=== PATIENT | female | born 1960 | race Caucasian/White ===

== ENCOUNTER 2021-07-05 14:57 | Emergency (ER) | payer OTHER ==
--- OUTSIDE RECORDS SUMMARY | 2021-07-05 15:00 | XMS REPORT | Continuity of Care Document ---
:1960 Author Organization [facility] t Address [address] [place] [address] Care Team Providers Name Role Phone Morro DOWLING Primary Care Physician Morro DOWLING Attending Clinician Doctor Unassigned, Name Attending Clinician Unavailable MORRO Attending Clinician Unavailable Romario DOWLING Attending Clinician Payers Payer Name Policy Type Policy Number Effective Date Expiration Date S ource Problems Condition Condition Condition Status Onset Resolution Last Treating Co mments Source Name Details Category Date Date Treatment Clinician Date Prediabete Prediabete Disease Active 2020-03 U nivers s s 0-22 ity of :: [address] [place] [address] Dysuria Dysuria Disease Active Univers 6-11 ity of :: Medical [place] History of History of Disease Active U nivers UTI UTI 09-05 ity of :: [place] [facility] CKD CKD Disease Active Univers (chronic (chronic 6- ity of kidney kidney 00:00: [place] disease) disease) 00 Medica l stage 2, stage 2, Branch GFR 60-89 GFR 60-89 ml/min ml/min Urinary Urinary Disease Active Univers frequency frequency - ity of :: Medical Branch Recurrent Recurrent Disease Active Uni vers UTI UTI - ity of 00:: Medical Branch Decreased Decreased Disease Active Uni vers GFR GFR - ity of 00:: [place] 00 Medical Branch Gastroesop Gastroesop Disease Active U nivers hageal hageal 3-29 ity of reflux reflux 00:00: [place] disease disease 00 Medical without without Branch esophagiti esophagiti s s Sleep Sleep Disease Active 2018-03 Univers apnea, apnea, 2-15 ity of unspecifie unspecifie [place] d type d type 00 Medical Branch Irritable Irritable Disease Active 2018-03 Uni vers bowel bowel 0-26 ity of syndrome syndrome 00:00: [place] with with 00 Medical diarrhea diarrhea Branch Annual Annual Disease Active 2018-03 Univers physical physical 0-23 ity of exam exam 00:00: [place] 00 Medical Branch Need for Need for Disease Active 2018-03 Unive rs prophylact prophylact 0-23 it y of ic ic 00:00: [place] vaccinatio vaccinatio 00 Me dical n against n against Bran ch Streptococ Streptococ cus cus pneumoniae pneumoniae (pneumococ (pneumococ cus) cus) Need for Need for Disease Active 2018-03 Unive rs hepatitis hepatitis 0-23 ity of C C 00:00: [place] screening screening 00 Medi vikki test test Branch Essential Essential Disease Active 2018-03 Uni vers hypertensi hypertensi 0-23 it y of on on 00:00: [place] 00 Medical Branch Morbid Morbid Disease Active Univers obesity obesity 4-21 ity of with body with body 00:00: [facility] s mass index mass index 00 Me dical (BMI) of (BMI) of Branch 40.0 or 40.0 or higher higher SVT SVT Disease Active Univers (supravent (supravent 4-21 it y of ricular ricular 00:00: [place] tachycardi tachycardi 00 Me dical a) a) Branch Diverticul Diverticul Disease Active U nivers itis itis 4-21 ity of 00:00: [place] 00 Medical Branch Diverticul Diverticul Disease Active U nivers osis osis 4-21 ity of 00:00: [place] 00 Medical Branch Neuralgia Neuralgia Disease Active Uni vers 4-21 ity of 00:00: [place] 00 Medical Branch H/O H/O Disease Active 2012-03 Univers thyroid thyroid 0-04 ity of disease disease 00:00: [place] 00 Medical Branch B12 B12 Disease Active 2012-03 Univers deficiency deficiency 0-04 it y of 00:00: [place] 00 Medical Branch Vitamin D Vitamin D Disease Active 2012-03 Uni vers deficiency deficiency 0-04 it y of 00:00: [place] 00 Medical Branch Allergies, Adverse Reactions, Alerts Allergy Allergy Status Severity Reaction(s) Onset Inactive Treating Comm ents Source Name Type Date Date Clinician CODEINE DRUG Active N/V Univers INGREDI 4-21 ity of 00:00: [place] 00 Medical Branch Codeine Propensi Active Nausea Univers ty to and/or 4-21 ity of adverse Vomiting 00:00: [place] reaction 00 Medical s Branch Social History Social Habit Start Date Stop Date Quantity Comments Source Exposure to Not sure [facility] SARS-CoV-2 [place] [facility] (event) Branch History SDOH University o f Alcohol Frequency [facility] edical Branch History SDOH University o f Alcohol Std [place] [facility] Drinks Branch History SDOH University o f Alcohol Binge [place] [facility] al [place] Alcohol intake 2021-03-27 2021-03-27 0 /d University of 00:00:00 00:00:00 [facility] Alcohol Comment 2014-07-16 2014-07-16 1-2 drinks per Unive rsity of 00:00:00 00:00:00 month [facility] Sex Ass[birth year] At [birth year] Universit y of 00:00:00 00:00:00 [facility] Smoking Status Start Date Stop Date Source Never smoker [facility] Medications Ordered Filled Start Stop Current Ordering Indication Dosage Frequency Signature Comments Components Source Medication Medication Date Date Medication? Clinician (SIG) Name Name RESTASIS Yes [id number] INSTILL 1 Univers 0.05 % 1-15 DROP IN ity of ophthalmic 00:00: BOTH EYES [place] drops 00 EVERY 12 Medical HOURS Branch RESTASIS Yes [id number] INSTILL 1 Univers 0.05 % 1-15 DROP IN ity of ophthalmic 00:00: BOTH EYES [place] drops 00 EVERY 12 Medical HOURS Branch RESTASIS Yes [id number] INSTILL 1 Univers 0.05 % 1-15 DROP IN ity of ophthalmic 00:00: BOTH EYES [place] drops 00 EVERY 12 Medical HOURS Branch METOPROLOL 2020-03 Yes [id number] TAKE 1 [place] TARTRATE 25 2-31 TABLET BY ity of mg tablet 00:00: MOUTH [place] 00 DAILY Medical Branch METOPROLOL 2020-03 Yes [id number] TAKE 1 [place] TARTRATE 25 2-31 TABLET BY ity of mg tablet 00:00: MOUTH 00 DAILY Medical Branch METOPROLOL 2020-03 Yes [id number] TAKE 1 [place] TARTRATE 25 2-31 TABLET BY ity of mg tablet 00:00: MOUTH DAILY Medical Branch METOPROLOL 2020-03 Yes [id number] TAKE 1 [place] TARTRATE 25 2-31 TABLET BY ity of mg tablet 00:00: MOUTH 00 DAILY Medical Branch estradioL 2020-03 Yes [id number] Apply 1g Univers (ESTRACE) 1-01 vaginally ity o f 0.01 % (0.1 00:00: at bedtime [place] mg/gram) 00 every Medical vaginal night for Branch cream 2 weeks and then apply 1g vaginally at bedtime 3 times per week ( dn/ ida) estradioL 2020-03 Yes [id number] Apply 1g Univers (ESTRACE) 1-01 vaginally ity o f 0.01 % (0.1 00:00: at bedtime [place] mg/gram) 00 every Medical vaginal night for Branch cream 2 weeks and then apply 1g vaginally at bedtime 3 times per week ( dn/ iday) estradioL 2020-03 Yes [id number] Apply 1g Univers (ESTRACE) 1-01 vaginally ity o f 0.01 % (0.1 00:00: at bedtime [place] mg/gram) 00 every Medical vaginal night for Branch cream 2 weeks and then apply 1g vaginally at bedtime 3 times per week ( dn iday) estradioL 2020-03 Yes [id number] Apply 1g Univers (ESTRACE) 1-01 vaginally ity o f 0.01 % (0.1 00:00: at bedtime [place] mg/gram) 00 every Medical vaginal night for Branch cream 2 weeks and then apply 1g vaginally at bedtime 3 times per week ( dn/ iday) cycloSPORIN 2020-03 Yes [id number] 1[drp] Place 1 Univers E 0-22 Drop in ity of (RESTASIS) 00:00: [place] eyes [place] 0.05 % 00 every 12 Medical drops (twelve) Branch hours. cycloSPORIN 2020-03- No [id number] 1[drp] Place 1 Univers E 0-22 01-15 Drop in ity of (RESTASIS) 00:00: 00:00 both eyes [place] 0.05 % 00 :00 every 12 Medical drops (twelve) Branch hours. phentermine 2020-03 Yes [id number] TAKE 1 Univers 30 mg 0-06 104 CAPSULE BY ity of capsule 00:00: MOUTH [place] 00 EVERY Medical MORNING Branch phentermine 2020-03 Yes [id number] TAKE 1 Univers 30 mg 0-06 104 CAPSULE BY ity of capsule 00:00: MOUTH [place] 00 EVERY Medical MORNING Branch phentermine 2020-03 Yes [id number] TAKE 1 Univers 30 mg 0-06 104 CAPSULE BY ity of capsule 00:00: MOUTH [place] 00 EVERY Medical MORNING Branch phentermine 2020-03 Yes [id number] TAKE 1 Univers 30 mg 0-06 104 CAPSULE BY ity of capsule 00:00: MOUTH [place] 00 EVERY Medical MORNING Branch omeprazole 2020-03 Yes [id number] 40mg Take 1 Univers 40 mg 0-05 capsule by ity of capsule 00:00: mouth [place] 00 daily. Medical Branch omeprazole 2020-03 Yes [id number] 40mg Take 1 Univers 40 mg 0-05 capsule by ity of capsule 00:00: mouth [place] 00 daily. Medical Branch omeprazole 2020-03 Yes [id number] 40mg Take 1 Univers 40 mg 0-05 capsule by ity of capsule 00:00: mouth [place] 00 daily. Medical Branch omeprazole 2020-03 Yes [id number] 40mg Take 1 Univers 40 mg 0-05 capsule by ity of capsule 00:00: mouth [place] 00 daily. Medical Branch diphenoxyla 2019-0 Yes [id number] 1{tbl} Take 1 Univers te-atropine 6-09 tablet by ity of (LOMOTIL) 00:00: mouth [place] 2.5-0.025 00 every 6 Medical mg per (six) Branch tablet hours as needed (IBS diarrhea/c ramping predominan t). diphenoxyla 2020-0 Yes [id number] 1{tbl} Take 1 Univers te-atropine 6-09 tablet by ity of (LOMOTIL) 00:00: mouth [place] 2.5-0.025 00 every 6 Medical mg per (six) Branch tablet hours as needed (IBS diarrhea/c ramping predominan t). diphenoxyla 2020-0 Yes [id number] 1{tbl} Take 1 Univers te-atropine 6-09 tablet by ity of (LOMOTIL) 00:00: mouth [place] 2.5-0.025 00 every 6 Medical mg per (six) Branch tablet hours as needed (IBS diarrhea/c ramping predominan t). diphenoxyla 2020-0 Yes [id number] 1{tbl} Take 1 Univers te-atropine 6-09 tablet by ity of (LOMOTIL) 00:00: mouth [place] 2.5-0.025 00 every 6 Medical mg per (six) Branch tablet hours as needed (IBS diarrhea/c ramping predominan t). acetaminoph 2020-0 Yes [id number] 650mg Take 1 Univers en 650 mg 5-21 tablet by ity o f CR tablet 00:00: mouth [place] 00 every 8 Medical (eight) Branch hours as needed for Pain or Fever. acetaminoph 2020-0 Yes [id number] 650mg Take 1 Univers en 650 mg 5-21 tablet by ity o f CR tablet 00:00: mouth [place] 00 every 8 Medical (eight) Branch hours as needed for Pain or Fever. acetaminoph 2020-0 Yes [id number] 650mg Take 1 Univers en 650 mg 5-21 tablet by ity o f CR tablet 00:00: mouth [place] 00 every 8 Medical (eight) Branch hours as needed for Pain or Fever. acetaminoph 2020-0 Yes [id number] 650mg Take 1 Univers en 650 mg 5-21 tablet by ity o f CR tablet 00:00: mouth [place] 00 every 8 Medical (eight) Branch hours as needed for Pain or Fever. cyanocobala 2018-03 Yes 1[drp] Place 1 U nivers min, 0-23 Drop under ity of vitamin 08:51: the tongue [place] B-12, 29 daily. Medical (VITAMIN Branch B-12) 5,000 mcg/mL Drop CALCIUM 2018-03 Yes 2{capsu Take 2 Unive rs CARBONATE/V 0-23 le} Caps by ity o f ITAMIN D3 08:51: mouth [place] (VITAMIN 29 daily. Medical D-3 ORAL) Branch cyanocobala 2018-03 Yes 1[drp] Place 1 U nivers min, 0-23 Drop under ity of vitamin 08:51: the tongue [place] B-12, 29 daily. Medical (VITAMIN Branch B-12) 5,000 mcg/mL Drop CALCIUM 2018-03 Yes 2{capsu Take 2 Unive rs CARBONATE/V 0-23 le} Caps by ity o f ITAMIN D3 08:51: mouth [place] (VITAMIN 29 daily. Medical D-3 ORAL) Branch cyanocobala 2018-03 Yes 1[drp] Place 1 U nivers min, 0-23 Drop under ity of vitamin 08:51: the tongue [place] B-12, 29 daily. Medical (VITAMIN Branch B-12) 5,000 mcg/mL Drop CALCIUM 2018-03 Yes 2{capsu Take 2 Unive rs CARBONATE/V 0-23 le} Caps by ity o f ITAMIN D3 08:51: mouth [place] (VITAMIN 29 daily. Medical D-3 ORAL) Branch cyanocobala 2018-03 Yes 1[drp] Place 1 U nivers min, 0-23 Drop under ity of vitamin 08:51: the tongue [place] B-12, 29 daily. Medical (VITAMIN Branch B-12) 5,000 mcg/mL Drop CALCIUM 2018-03 Yes 2{capsu Take 2 Unive rs CARBONATE/V 0-23 le} Caps by ity o f ITAMIN D3 08:51: mouth [place] (VITAMIN 29 daily. Medical D-3 ORAL) Branch Immunizations Ordered Filled Immunization Date Status Comments [facility] e Immunization Name Name SARS-COV-2 COVID-19 2020-06-02 Completed Unive rsity of MODERNA VACCINE 00:00:00 [facility] Branch SARS-COV-2 COVID-19 2020-06-02 Completed Unive rsity of MODERNA VACCINE 00:00:00 [facility] Branch SARS-COV-2 COVID-19 2020-06-02 Completed Unive rsity of MODERNA VACCINE 00:00:00 [facility] SARS-COV-2 COVID-19 2020-06-02 Completed Unive rsity of MODERNA VACCINE 00:00:00 [facility] SARS-COV-2 COVID-19 2020-05-03 Completed Unive rsity of MODERNA VACCINE 00:00:00 [place] Med ical Branch SARS-COV-2 COVID-19 2020-05-03 Completed Unive rsity of MODERNA VACCINE 00:00:00 [facility] SARS-COV-2 COVID-19 2020-05-03 Completed Unive rsity of MODERNA VACCINE 00:00:00 [facility] SARS-COV-2 COVID-19 2020-05-03 Completed Unive rsity of MODERNA VACCINE 00:00:00 [facility] Influenza Virus 2019-01-17 Completed Universit y of Vaccine [place] .5 mL 00:00:00 [facility] IM 6+ MO Branch Influenza Virus 2019-01-17 Completed Universit y of Vaccine [place] .5 mL 00:00:00 [facility] IM 6+ MO Branch Influenza Virus 2019-01-17 Completed Universit y of Vaccine [place] .5 mL 00:00:00 [facility] 6+ MO Branch Influenza Virus 2019-01-17 Completed Universit y of Vaccine [place] .5 mL 00:00:00 [facility] 6+ MO Branch Vital Signs Vital Name Observation Time Observation Value Comments Source Systolic blood 2021-03-27 16:23:00 125 mm[Hg] Univer sity of pressure [facility] Diastolic blood 2021-03-27 16:23:00 74 mm[Hg] Unive rsity of pressure [facility] Heart rate 2021-03-27 16:23:00 74 /min [facility] Body temperature 2021-03-27 16:23:00 36.83 [facility] Respiratory rate 2021-03-27 16:23:00 20 /min [facility] Body height 2021-03-27 16:23:00 172.7 cm [facility] Body weight 2021-03-27 16:23:00 117.935 kg [facility] BMI 2021-03-27 16:23:00 39.53 kg/m2 [facility] Oxygen saturation in 2021-03-27 16:23:00 98 /min [facility] Arterial blood by [facility] Pulse oximetry [place] Procedures Procedure Date / Time Performed Performing Clinician Sour e EXTERNAL PROVIDER 2021-06-17 05:01:00 Doctor Unassigned, No [facility] [place] RECORDS Name Medical [place] POCT URINALYSIS AUTO 2021-03-27 16:25:[address] [facility] Encounters Start End Encounter Admission Attending Care Care Encounter Source Date/Time Date/Time Type Type Clinicians Facility Department ID 2021-06-22 2021-06-22 [id number] Univers 00:00:00 00:00:00 Lon GIRARD [id number] i ty of [place] [id number] [id number] [facility] 2021-06-17 2021-06-17 Orders Doctor ZAHRA [id number] Univers 00:00:00 00:00:00 Only Unassigned, CRISTIAN [id number] ity of [place] [facility] [id number] Alireza as [id number] [address] 2021-05-05 2021-05-05 [id number] Univers 08:00:00 08:00:[address] [facility] 2021-04-11 2021-04-11 [facility] [id number] Univers 00:00:00 00:00:00 Lon GIRARD [id number] i ty [place] [id number] [id number] [facility] 044 [facility] 2021-03-27 2021-03-27 Office [facility] [id number] Univers 10:00:00 10:54:48 Visit Lori GIRARD [id number] i ty of [place] [id number] [place] [id number] [facility] 098 [facility] Results Test Description Test Time Test Comments Results Result Comments Source POCT URINALYSIS, INSTRUMENT 2021-03-27 16:26:00 Test Item Value Reference Range Interpretation Comme nts POCT U SP GRAV (test code = 3255) 1.030 mg/dl 1.005-1.025 A POCT PH U (test code = 3254) 6.5 mg/dl 5-8 POCT U LEUK EST (test code = 3263) Negative Negative - Negative POCT U NIT (test code = 3262) Negative Negative - Negative POCT U PROT (test code = 3259) Negative Negative - Negative POCT U GLU (test code = 3256) Negative Negative - Negative POCT U KETONE (test code = 3258) Negative Negative - Negative POCT U UROBILI (test code = 3260) 0.2 mg/dl 0.2-1 POCT U BILI (test code = 3261) Negative Negative - Negative POCT U BLD (test code = 3257) Negative Negative - Negative POCT U COLOR (test code = 3266) dark yellow POCT U APPEAR (test code = 3267) clear Lab Interpretation (test code = 59020-4) Abnormal [facility]
[2021-07-05 17:06] LABS: Urine Blood 2+ (Negative); Urine Glucose Negative (Negative); Urine Protein Negative (Negative); Urine Specific Gravity 1.025 (1.005-1.030)
[2021-07-05 17:33] LABS: Urine Bacteria >50 /HPF (<20)
[2021-07-05 19:14] LABS: Absolute Lymphocytes (CBC) 1.4 K/uL (0.7-4.9); Hematocrit 45.1 % (36.0-45.0); Lymphocytes % 11.7 % (15.3-44.8); MPV 7.6 fL (7.6-11.3); RBC Red Blood Cell Count 5.32 M/uL (3.86-4.86)
[2021-07-05 19:29] LABS: Albumin 3.4 g/dL (3.4-5.0); Bilirubin Total 0.5 mg/dL (0.2-1.0); Potassium 3.3 mmol/L (3.5-5.1); Protein, Total 7.2 g/dL (6.4-8.2)
--- NOTE | 2021-07-05 20:06 | RAD REPORT ---
EXAM DESCRIPTION: CTAbdomen Pelvis W Contrast - 07/05/2021 7:45 pm CLINICAL HISTORY: right flank pain COMPARISON: Transvaginal OB dated 02/03/2021No comparisons TECHNIQUE: CT of the abdomen and pelvis was performed. All CT scans are performed using dose optimization technique as appropriate and may include automated exposure control or mA/KV adjustment according to patient size. FINDINGS: Lower chest: No acute abnormality. Liver: Hepatic steatosis Biliary: Cholecystectomy Stomach: No significant focal abnormality. Duodenum: No significant focal abnormality. Pancreas: No significant abnormality. Spleen: No significant abnormality. Adrenal: No suspicious lesions. Kidney/ureter: No hydronephrosis. No renal calculi. Retroperitoneum: No retroperitoneal adenopathy. Vascular: No aneurysm. Bowel: No significant focal abnormality. No appendicitis. The cecum is present at the midline. Peritoneum: No ascites or free air. Bladder: Grossly unremarkable. Reproductive: No adnexal masses. Bones: No acute fracture. Other: n/a IMPRESSION: No acute intra-abdominal or pelvic finding. Incidental findings as noted above.
[2021-07-05 20:25] LABS: SARS-COV-2 RT PCR NEGATIVE (NEGATIVE)
[2021-07-05] MEDS ORDERED: CEFTRIAXONE 1000 MG/VIAL ONE (21:07)
[2021-07-05] MEDS ORDERED: FENTANYL CITR 100 MCG/2 ML ONE (21:35)
[2021-07-05] MEDS ORDERED: ONDANSETRON 4 MG/2 ML VIAL ONE (21:36)
--- NOTE | 2021-07-05 21:39 | EDPHYS ---
Physician Documentation [facility] Name: Yessenia Weir Age: 61 yrs Sex: Female : 1960 Arrival Date: 07/05/2021 Time: 14:59 Bed 13 Private MD: JONY Physician Rigoberto Church HPI: 07/05 16:31 This 61 yrs old Female presents to ER via Ambulatory with complaints of Back Pain. [facility] 16:31 The patient presents with pain that is acute. Onset: The symptoms/episode jmm began/occurred today. The pain radiates to the pelvis. Associated signs and symptoms: Pertinent positives: abdominal pain, dysuria, nausea. Modifying factors: The patient symptoms are alleviated by nothing, the patient symptoms are aggravated by. The patient has experienced similar episodes in the past. Historical: - Allergies: 15:35 Codeine; ll1 - PMHx: 15:35 UTI; Hypertensive disorder; ll1 - PSHx: 15:35 Cholecystectomy; section; Tonsillectomy; knee SX; ll1 - Immunization history:: Client reports receiving the 2nd dose of the Covid vaccine. - Social history:: Smoking status: Patient denies any tobacco usage or history of. ROS: 16:31 Respiratory: Negative for shortness of breath, cough, wheezing, and pleuritic chest jmm pain. 16:31 Constitutional: Positive for body aches, chills. 16:31 Abdomen/GI: Positive for abdominal pain. 16:31 Back: Positive for flank pain. 16:31 All other systems are negative. Exam: 16:31 Constitutional: This is a well developed, well nourished patient who is awake, alert, jmm and in no acute distress. Head/Face: atraumatic. Eyes: EOMI, no conjunctival erythema appreciated ENT: Moist Mucus Membranes Neck: Trachea midline, Supple Chest/axilla: Normal chest wall appearance and motion. Cardiovascular: Regular rate and rhythm. No edema appreciated Respiratory: Normal respirations, no respiratory distress appreciated Abdomen/GI: Non distended, soft Back: Normal ROM Skin: General appearance color normal MS/ Extremity: Moves all extremities, no obvious deformities appreciated, no edema noted to the lower extremities Neuro: Awake and alert Psych: Behavior is normal, Mood is normal, Patient is cooperative and pleasant Vital Signs: 15:32 BP 155 / 58; Pulse 88; Resp 17; Temp 99.4; Pulse Ox 96% ; Weight 117.93 kg; Height 5 ll1 ft. 6 in. (167.64 cm); Pain 6/10; 20:51 BP 160 / 90; Pulse 91; Resp 17; Temp 101.3; Pulse Ox 97% on R/A; Pain 2/10; al4 21:36 BP 144 / 64; Pulse 94; Resp 18; Pulse Ox 96% ; al4 22:12 BP 130 / 69; Pulse 91; Resp 18 S; Pulse Ox 98% on R/A; Pain 4/10; al4 22:42 BP 119 / 69; Pulse 88; Resp 18 S; Pulse Ox 96% on R/A; al4 15:32 Body Mass Index 41.96 (117.93 kg, 167.64 cm) ll1 MDM: 17:06 Patient medically screened. [facility] 21:33 Data reviewed: vital signs. Data interpreted: Pulse oximetry: on room air is 97 %. pm1 Interpretation: normal. Counseling: I had a detailed discussion with the patient and/or guardian regarding: the historical points, exam findings, and any diagnostic results supporting the discharge/admit diagnosis, lab results, radiology results, the need for outpatient follow up, to return to the emergency department if symptoms worsen or persist or if there are any questions or concerns that arise at home. 21:35 ED course: Urine culture from 06/03/2021 reviewed on the patient's phone. patient pm1 unable to recall the antibiotic that she was given last. Sensitivity to Augmentin and Macrobid. Will discharge home on Macrobid pending urine culture results. 07/05 16:31 Order name: COVID-19/FLU A+B (Document "Date of Onset" if Symptomatic); Complete Time: pm1 20:37 07/05 17:06 Order name: Urine Dipstick-Ancillary; Complete Time: 17:06 EDMS 07/05 17:08 Order name: CBC with Diff; Complete Time: 19:17 [facility] 07/05 17:08 Order name: CMP; Complete Time: 19:30 [facility] 07/05 17:08 Order name: Lipase; Complete Time: 19:30 [facility] 07/05 16:31 Order name: Urine Dipstick-Ancillary (obtain specimen); Complete Time: 17:07 pm1 07/05 17:08 Order name: CT Abd/Pelvis - IV Contrast Only; Complete Time: 20:07 [facility] 07/05 17:24 Order name: Urine Microscopic Only; Complete Time: 17:34 EDMS 07/05 17:40 Order name: Urine Culture; Complete Time: 18:27 EDIN 07/05 16:31 Order name: Urine Test (obtain specimen); Complete Time: 17:07 pm1 07/05 17:08 Order name: IV Saline Lock; Complete Time: 20:48 jm 07/05 17:08 Order name: Labs collected and sent; Complete Time: 20:48 jm Administered Medications: 20:02 Drug: Tylenol 1000 mg Route: PO; al4 22:29 Follow up: Response: No adverse reaction al4 21:07 Drug: Rocephin (cefTRIAXone) 2 grams Route: IV; Rate: calculated rate; Site: right al4 antecubital; 21:07 Follow up: IV Status: Completed infusion al4 21:37 Drug: Zofran (Ondansetron) 4 mg Route: IVP; Site: right antecubital; al4 22:54 Follow up: Response: No adverse reaction al4 21:37 Drug: fentaNYL (PF) 50 mcg Route: IVP; Site: right antecubital; al4 22:12 Follow up: Response: No adverse reaction; RASS: Alert and Calm (0) al4 Disposition Summary: 07/05/21 21:37 Discharge Ordered Location: Home pm1 Problem: new pm1 Symptoms: have improved pm1 Condition: Stable pm1 Diagnosis - UTI/ Urinary tract infection, site not specified pm1 Followup: pm1 - With: Emergency Department - When: As needed - Reason: Worsening of condition Followup: pm1 - With: Private Physician - When: 2 - 3 days - Reason: Recheck today's complaints, Continuance of care, Re-evaluation by your physician Discharge Instructions: - Discharge Summary Sheet pm1 - Urinary Tract Infection, Adult pm1 Forms: - Medication Reconciliation Form pm1 - Thank You Letter pm1 - Antibiotic Education pm1 - Prescription Opioid Use pm1 Prescriptions: - Macrobid 100 mg Oral Capsule - take 1 capsule by ORAL route every 12 hours for 10 days; 20 capsule; Refills: pm1 0, Product Selection Permitted Addendum: 07/09/2021 18:38 Co-signature as Attending Physician, Rigoberto Church MD I agree with the assessment and c johnson plan of care. Signatures: Dispatcher [employer] EDRigoberto cShmitz MD MD cha Mickail, Joel, JAROD PA jmm Faraz Meza, DENTAL CHAIRSIDE ASSISTANT DENTAL CHAIRSIDE ASSISTANT pm1 Harsh Sifuentes RN RN ll1 Adarsh Jean Baptiste4 Corrections: (The following items were deleted from the chart) 07/05 19:15 17:35 UA MICROSCOPIC+U.LAB.BRZ ordered. ROSALIE WIGGINS
--- NOTE | 2021-07-05 21:39 | ER ---
Nurse's Notes [facility] Name: Yessenia Weir Age: 61 yrs Sex: Female : 1960 Arrival Date: 07/05/2021 Time: 14:59 Bed 13 Private MD: Diagnosis: UTI/ Urinary tract infection, site not specified Presentation: 07/05 15:32 Chief complaint: Patient states: N/V/D on Tuesday for 24 hours, then felt better. Awoke ll1 today feeling weak, epigastric pain, fever 101 at home, and right lower back pain. States she has had UTI's the past year. Coronavirus screen: Vaccine status: Patient reports receiving the 2nd dose of the covid vaccine. Client indicates they have traveled out of the [place] in the last 14 days. Client traveled to: [place] At this time, the client does not indicate any symptoms associated with coronavirus-19. Ebola Screen: Patient denies travel to an Ebola-affected area in the 21 days before illness onset. Initial Sepsis Screen: Does the patient meet any 2 criteria? No. Patient's initial sepsis screen is negative. Does the patient have a suspected source of infection? Yes: Dysuria/Frequency/Urgency/UTI. Risk Assessment: Do you want to hurt yourself or someone else? Patient reports no desire to harm self or others. Onset of symptoms was June 30, 2021. 15:32 Method Of Arrival: Ambulatory ll1 15:32 Acuity: VIVIANA 3 ll1 Triage Assessment: 15:38 General: Appears in no apparent distress. Behavior is calm, cooperative, appropriate ll1 for age. Pain: Complains of pain in R low back Quality of pain is described as aching. : Reports urinary frequency. Musculoskeletal: Circulation, motion, and sensation intact. Capillary refill < 3 seconds, Reports pain in R lower back. Historical: - Allergies: 15:35 Codeine; ll1 - PMHx: 15:35 UTI; Hypertensive disorder; ll1 - PSHx: 15:35 Cholecystectomy; section; Tonsillectomy; knee SX; ll1 - Immunization history:: Client reports receiving the 2nd dose of the Covid vaccine. - Social history:: Smoking status: Patient denies any tobacco usage or history of. Screenin:50 Abuse screen: Denies threats or abuse. Abuse screen: Denies threats or abuse. 6 18:50 Nutritional screening: No deficits noted. Tuberculosis screening: No symptoms or risk [facility] factors identified. Fall Risk Assessment: 18:50 General: Appears in no apparent distress. Behavior is calm, cooperative. jh6 18:50 Pain: Complains of pain in right mid back and right low back Pain does not radiate. jh6 Pain currently is 2 out of 10 on a pain scale. Neuro: No deficits noted. Musculoskeletal: Reports pain in right low back. 20:48 General: Appears in no apparent distress. uncomfortable, Behavior is calm, cooperative. al4 Pain: Complains of pain in right low back. Neuro: Level of Consciousness is awake, alert, obeys commands, Oriented to person, place, time, situation. Cardiovascular: Capillary refill < 3 seconds Patient's skin is warm and dry. Respiratory: Airway is patent Respiratory effort is unlabored, Respiratory pattern is regular. : Reports urinary frequency, Denies discharge. Musculoskeletal: Circulation, motion, and sensation intact. 20:51 Reassessment: patient told that she had pain medication and nausea medication ordered. al4 RN asked if patient wanted the medication and patient responded "not right now.". 21:42 Reassessment: Patient and/or family updated on plan of care and expected duration. Pain al4 level reassessed. Patient is alert, oriented x 3, equal unlabored respirations, skin warm/dry/pink. 22:28 Reassessment: Patient and/or family updated on plan of care and expected duration. Pain al4 level reassessed. Patient is alert, oriented x 3, equal unlabored respirations, skin warm/dry/pink. Vital Signs: 15:32 BP 155 / 58; Pulse 88; Resp 17; Temp 99.4; Pulse Ox 96% ; Weight 117.93 kg; Height 5 ll1 ft. 6 in. (167.64 cm); Pain 6/10; 20:51 BP 160 / 90; Pulse 91; Resp 17; Temp 101.3; Pulse Ox 97% on R/A; Pain 2/10; al4 21:36 BP 144 / 64; Pulse 94; Resp 18; Pulse Ox 96% ; al4 22:12 BP 130 / 69; Pulse 91; Resp 18 S; Pulse Ox 98% on R/A; Pain 4/10; al4 22:42 BP 119 / 69; Pulse 88; Resp 18 S; Pulse Ox 96% on R/A; al4 15:32 Body Mass Index 41.96 (117.93 kg, 167.64 cm) ll1 ED Course: 14:59 Patient arrived in ED. ds1 15:15 Arm band placed on. ll1 15:35 Triage completed. 1 16:49 Lele Lerner PA is PHCP. [facility] 16:49 Rigoberto Church MD is Attending Physician. [facility] 18:27 Patient placed in an exam room, on a stretcher. ss 18:50 Bed in low position. Call light in reach. Side rails up X 1. [facility] 18:55 Maira Bryant, EDISON is Primary Nurse. ss 19:00 Inserted saline lock: 20 gauge in right antecubital area, using aseptic technique. 6 Blood collected. 19:46 CT Abd/Pelvis - IV Contrast Only In Process Unspecified. EDMS 19:47 PHCP role handed off by Lele Lerner PA pm1 19:47 Ila Meza NP is PHCP. pm1 20:19 Primary Nurse role handed off by Maira Bryant, RN cs9 20:53 Adarsh Jean Baptiste is Primary Nurse. al4 22:53 No provider procedures requiring assistance completed. IV discontinued, intact, al4 bleeding controlled, No redness/swelling at site. Pressure dressing applied. Administered Medications: 20:02 Drug: Tylenol 1000 mg Route: PO; al4 22:29 Follow up: Response: No adverse reaction al4 21:07 Drug: Rocephin (cefTRIAXone) 2 grams Route: IV; Rate: calculated rate; Site: right al4 antecubital; 21:07 Follow up: IV Status: Completed infusion al4 21:37 Drug: Zofran (Ondansetron) 4 mg Route: IVP; Site: right antecubital; al4 22:54 Follow up: Response: No adverse reaction al4 21:37 Drug: fentaNYL (PF) 50 mcg Route: IVP; Site: right antecubital; al4 22:12 Follow up: Response: No adverse reaction; RASS: Alert and Calm (0) al4 Outcome: 21:37 Discharge ordered by . pm1 22:53 Discharged to home ambulatory, with ride from al4 22:53 Condition: stable 22:53 Discharge instructions given to patient, family, Instructed on discharge instructions, follow up and referral plans. medication usage, Demonstrated understanding of instructions, follow-up care, medications, Prescriptions given X 1. 22:53 Patient left the ED. al4 Addendum: 07/07/2021 18:19 Addendum: Other pt called on 07/07/21 talked to ila chanel 07/09/2021 08:39 Addendum: Culture Results: No further action required. Bacteria sensitive to prescribed i w antibiotic. Signatures: Dispatcher [employer] EDMS Juana Camacho Joel, PA PA jmm Sanford, Demi ds1 Tonya Strange RN RN Maira Bryant RN RN ss Marinas, Patrick, NP HUMAN RESOURCES TECHNICIAN pm1 Harsh Sifuentes RN RN ll1 Sofiya Parsons 9 Krystal Campbell RN RN 6 Adarsh Jean Baptiste al4 Corrections: (The following items were deleted from the chart) 07/05 15:37 15:32 BP 155 / 58; Resp 17bpm; Temp 99.4F; 117.93 kg; Height 5 ft. 6 in.; BMI: 41.9; ll1 Pain 6/10; ll1 19:15 17:38 UA MICROSCOPIC+U.LAB.BRZ drawn and sent. ll1 EDMS 21:07 20:48 Pain: Complains of pain in right low back Pain currently is 2 out of 10 on a pain al4 scale. al4
[2021-07-05] MEDS ORDERED: ACETAMINOPHEN 500 MG TAB ONE (22:04)
[2021-07-05 23:13] VITALS: TEMP 101.3
[2021-07-05 23:19] VITALS: BP 119/69; O2SAT 96
== END 2021-07-05 22:53 | disposition home or self-care (01) ==
LOC: ER 14:57
DX: N39.0 Urinary tract infection, site not specified (principal); I10 Essential (primary) hypertension; Z88.5 Allergy status to narcotic agent; Z20.822 Contact with and (suspected) exposure to COVID-19
CPT/HCPCS: 87088; 85025; 87086; 36415; 87077; 87186; 83690; 80053; 0240U; 74177; 96375; 96374; 99284; Q9967; J3010; J2405; 81003; 81015

== ENCOUNTER 2021-11-29 14:45 | Emergency (ER) | payer OTHER ==
--- OUTSIDE RECORDS SUMMARY | 2021-11-29 14:49 | XMS REPORT | Continuity of Care Document ---
:1960 Author Organization [facility] t Address [address] [place] [address] Care Team Providers Name Role Phone Hitesh Hooker MD Primary Care Physician Hitesh Hooker MD Attending Clinician Doctor Unassigned, [place] Attending Clinician Unavailable HITESH HOOKER Attending Clinician Unavailable Lori Doss MD Attending Clinician Payers Payer Name Policy Type Policy Number Effective Date Expiration Date S ource Problems Condition Condition Condition Status Onset Resolution Last Treating Co mments Source Name Details Category Date Date Treatment Clinician Date Prediabete Prediabete Disease Active 2020-03 U nivers s s 0-22 ity of 00:: [place] [address] Medical Branch Dysuria Dysuria Disease Active Univers 6-11 ity of :: [place] [address] Medical Branch History of History of Disease Active U nivers UTI UTI - ity of 00:: [place] [address] Medical Branch CKD CKD Disease Active Univers (chronic (chronic 6- ity of kidney kidney 00:00: [place] disease) disease) 00 Medica l stage 2, stage 2, Branch GFR 60-89 GFR 60-89 ml/min ml/min Urinary Urinary Disease Active Univers frequency frequency 6- ity of 00:: [place] [address] Medical Branch Recurrent Recurrent Disease Active Uni vers UTI UTI 08-27 ity of 00:: [place] [address] Medical Branch Decreased Decreased Disease Active Uni vers GFR GFR 6-02 ity of 00:00: [place] 00 Medical Branch Gastroesop Gastroesop Disease [...] hepatitis 0-23 ity of C C 00:00: [place] screening screening 00 Medi vikki test test Branch Essential Essential Disease Active 2018-03 Uni vers hypertensi hypertensi 0-23 it y of on on 00:00: [place] 00 Medical Branch Morbid Morbid Disease Active Univers obesity obesity 4-21 [place] of with body with body [place] mass index mass index 00 Me [...] deficiency deficiency 0-04 it y of 00:00: [place] [facility] Vitamin D Vitamin D Disease Active 2012-03 Uni vers deficiency deficiency 0-04 it y of 00:00: [place] [address] [facility] Allergies, Adverse Reactions, Alerts Allergy Allergy Status Severity Reaction(s) Onset Inactive Treating Comm ents Source Name Type Date Date Clinician CODEINE DRUG Active N/V Univers INGREDI - ity of 00:00: [place] 00 Medical Branch Codeine Propensi Active Nausea Univers ty to and/or 07-16 ity of adverse Vomiting 00:00: [place] reaction 00 Medical s Branch Social History Social Habit Start Date Stop Date Quantity Comments Source Exposure to Not sure University of SARS-CoV-2 [place] Medical (event) Branch History SDOH University o f Alcohol Frequency [place] M edical Branch History SDOH University o f Alcohol Std [place] Medical Drinks Branch History SDOH University o f Alcohol Binge [place] Medic al Branch Alcohol intake 2021-03-27 2021-03-27 0 /d University of 00:00:00 00:00:00 [facility] Tobacco use and 2014-07-16 2014-07-16 Smokeless tobacco Un iversity of exposure 00:00:00 00:00:00 non-user [facility] Alcohol Comment 2014-07-16 2014-07-16 1-2 drinks per Unive rsity of 00:00:00 00:00:00 month [facility] Sex Ass[birth year] At [birth year] Universit y of 00:00:00 00:00:00 [facility] Smoking Status Start Date Stop Date Source Never smoked tobacco [facility] Medications Ordered Filled Start Stop Current Ordering Indication Dosage Frequency Signature Comments Components Source Medication Medication Date Date Medication? Clinician (SIG) Name Name OMEPRAZOLE Yes [id number] 40mg TAKE 1 Univers 40 mg 8-24 CAPSULE BY ity of capsule 00:00: MOUTH [place] 00 DAILY Medical Branch RESTASIS Yes [id number] INSTILL 1 Univers 0.05 % 1-15 DROP IN ity of ophthalmic 00:00: BOTH EYES [place] drops 00 EVERY 12 Medical HOURS Branch RESTASIS Yes [id number] INSTILL 1 Univers 0.05 % 1-15 DROP IN ity of ophthalmic 00:00: BOTH EYES [place] drops 00 EVERY 12 Medical HOURS Branch RESTASIS 0 Yes [id number] INSTILL 1 Univers 0.05 % 1-15 DROP IN ity of ophthalmic 00:00: BOTH EYES [place] drops 00 EVERY 12 Medical HOURS Branch RESTASIS 0 Yes [id number] INSTILL 1 Univers 0.05 % 1-15 DROP IN ity of ophthalmic 00:00: BOTH EYES [place] drops 00 EVERY 12 Medical HOURS Branch RESTASIS 0 Yes [id number] INSTILL 1 Univers 0.05 % 1-15 DROP IN ity of ophthalmic 00:00: BOTH EYES [place] drops 00 EVERY 12 Medical HOURS Branch METOPROLOL 2020-03 Yes [id number] TAKE 1 [place] TARTRATE 25 2-31 TABLET BY ity of mg tablet 00:00: MOUTH [place] DAILY Medical Branch METOPROLOL 2020-03 Yes [id number] TAKE 1 [place] TARTRATE 25 2-31 TABLET BY ity of mg tablet 00:00: [facility] DAILY Medical Branch METOPROLOL 2020-03 Yes [id number] TAKE 1 [place] TARTRATE 25 2-31 TABLET BY ity of mg tablet 00:00: MOUTH [place] DAILY Medical Branch METOPROLOL 2020-03 Yes [id number] TAKE 1 [place] TARTRATE 25 2-31 TABLET BY ity of mg tablet 00:00: MOUTH [place] DAILY Medical Branch METOPROLOL 2020-03 Yes [id number] TAKE 1 [place] TARTRATE 25 2-31 TABLET BY ity of mg tablet 00:00: MOUTH [place] DAILY Medical Branch METOPROLOL 2020-03 Yes [id number] TAKE 1 [place] TARTRATE 25 2-31 TABLET BY ity of mg tablet 00:00: MOUTH [place] 00 DAILY Medical Branch estradioL 2020-03 Yes [id number] Apply 1g Univers (ESTRACE) 1-01 vaginally ity o f 0.01 % (0.1 00:00: at bedtime [place] mg/gram) 00 every Medical vaginal night for Branch cream 2 weeks and then apply 1g vaginally at bedtime 3 times per week (Tuesday//) estradioL 2020-03 Yes [id number] Apply 1g Univers (ESTRACE) 1-01 vaginally ity o f 0.01 % (0.1 00:00: at bedtime [place] mg/gram) 00 every Medical vaginal night for Branch cream 2 weeks and then apply 1g vaginally at bedtime 3 times per week ( dn ida) estradioL 2020-03 Yes [id number] Apply 1g Univers (ESTRACE) 1-01 vaginally ity o f 0.01 % (0.1 00:00: at bedtime [place] mg/gram) 00 every Medical vaginal night for Branch cream 2 weeks and then apply 1g vaginally at bedtime 3 times per week ( dn ida) estradioL 2020-03 Yes [id number] Apply 1g Univers (ESTRACE) 1-01 vaginally ity o f 0.01 % (0.1 00:00: at bedtime [place] mg/gram) 00 every Medical vaginal night for Branch cream 2 weeks and then apply 1g vaginally at bedtime 3 times per week ( dn ida) estradioL 2020-03 Yes [id number] Apply 1g Univers (ESTRACE) 1-01 vaginally ity o f 0.01 % (0.1 00:00: at bedtime [place] mg/gram) 00 every Medical vaginal night for Branch cream 2 weeks and then apply 1g vaginally at bedtime 3 times per week ( dn ida) estradioL 2020-03 Yes [id number] Apply 1g Univers (ESTRACE) 1-01 vaginally ity o f 0.01 % (0.1 00:00: at bedtime [place] mg/gram) 00 every Medical vaginal night for Branch cream 2 weeks and then apply 1g vaginally at bedtime 3 times per week ( dn ida) cycloSPORIN 2020-03 Yes [id number] 1[drp] Place 1 Univers E 0-22 Drop in ity of (RESTASIS) 00:00: both eyes [place] 0.05 % 00 every 12 Medical drops (twelve) Branch hours. cycloSPORIN 2020-03- No [id number] 1[drp] Place 1 Univers E 0-22 01-15 Drop in ity of (RESTASIS) 00:00: 00:00 both eyes [place] 0.05 % 00 :00 every 12 Medical drops (twelve) Branch hours. phentermine 2020-03 Yes [id number] TAKE 1 Univers 30 mg 0-06 104 CAPSULE BY ity of capsule 00:00: MOUTH [place] 00 EVERY Medical MORNING Branch phentermine 2020-03 Yes [id number] TAKE 1 Univers 30 mg 0-06 104 CAPSULE BY ity of capsule 00:00: MOUTH [place] 00 EVERY Medical MORNING Branch phentermine 2020-03 Yes [id number] TAKE 1 Univers 30 mg 0-06 104 CAPSULE BY ity of capsule 00:00: MOUTH [place] 00 EVERY Medical MORNING Branch phentermine 2020-03 Yes [id number] TAKE 1 Univers 30 mg 0-06 104 CAPSULE BY ity of capsule 00:00: MOUTH [place] 00 EVERY Medical MORNING Branch phentermine 2020-03 Yes [id number] TAKE 1 Univers 30 mg 0-06 104 CAPSULE BY ity of capsule 00:00: MOUTH [place] 00 EVERY Medical MORNING Branch phentermine 2020-03 Yes [id number] TAKE 1 Univers 30 mg 0-06 104 CAPSULE BY ity of capsule 00:00: MOUTH [place] 00 EVERY Medical MORNING Branch omeprazole 2020-03 Yes [id number] 40mg Take 1 Univers 40 mg 0-05 capsule by ity of capsule 00:00: mouth [place] 00 daily. Medical Branch omeprazole 2020-03 Yes [id number] 40mg Take 1 Univers 40 mg 0-05 capsule by ity of capsule 00:00: mouth [place] 00 daily. Medical Branch omeprazole 2020-03 Yes [id number] 40mg Take 1 Univers 40 mg 0-05 capsule by ity of capsule 00:00: mouth [place] 00 daily. Medical Branch omeprazole 2020-03 Yes [id number] 40mg Take 1 Univers 40 mg 0-05 capsule by ity of capsule 00:00: mouth [place] 00 daily. Medical Branch omeprazole 2020-03 Yes [id number] 40mg Take 1 Univers 40 mg 0-05 capsule by ity of capsule 00:00: mouth [place] 00 daily. Medical Branch omeprazole 2020-03- No [id number] 40mg Take 1 Univers 40 mg 0-05 08-24 capsule by ity of capsule 00:00: 00:00 mouth [place] 00 :00 daily. Medical Branch diphenoxyla 2019-0 Yes [id number] 1{tbl} Take 1 Univers te-atropine 6-09 tablet by ity of (LOMOTIL) 00:00: mouth [place] 2.5-0.025 00 every 6 Medical mg per (six) Branch tablet hours as needed (IBS diarrhea/c ramping predominan t). diphenoxyla 2020-0 Yes 1{tbl} Take 1 Univers te-atropine 6-09 tablet by ity of (LOMOTIL) 00:00: mouth [place] 2.5-0.025 00 every 6 Medical mg per (six) Branch tablet hours as needed (IBS diarrhea/c ramping predominan t). diphenoxyla 2020-0 Yes 1{tbl} Take 1 Univers te-atropine 6-09 tablet by ity of (LOMOTIL) 00:00: mouth [place] 2.5-0.025 00 every 6 Medical mg per (six) Branch tablet hours as needed (IBS diarrhea/c ramping predominan t). diphenoxyla 2020-0 Yes 1{tbl} Take 1 Univers te-atropine 6-09 tablet by ity of (LOMOTIL) 00:00: mouth [place] 2.5-0.025 00 every 6 Medical mg per (six) Branch tablet hours as needed (IBS diarrhea/c ramping predominan t). diphenoxyla 2020-0 Yes 1{tbl} Take 1 Univers te-atropine 6-09 tablet by ity of (LOMOTIL) 00:00: mouth [place] 2.5-0.025 00 every 6 Medical mg per (six) Branch tablet hours as needed (IBS diarrhea/c ramping predominan t). diphenoxyla 2020-0 Yes 1{tbl} Take 1 Univers te-atropine 6-09 tablet by ity of (LOMOTIL) 00:00: mouth [place] 2.5-0.025 00 every 6 Medical mg per (six) Branch tablet hours as needed (IBS diarrhea/c ramping predominan t). acetaminoph 2020-0 Yes [id number] 650mg Take 1 Univers en 650 mg 5-21 tablet by ity o f CR tablet 00:00: mouth [place] 00 every 8 Medical (eight) Branch hours as needed for Pain or Fever. acetaminoph 2020-0 Yes [id number] 650mg Take 1 Univers en 650 mg 5-21 tablet by ity o f CR tablet 00:00: mouth [place] 00 every 8 Medical (eight) Branch hours as needed for Pain or Fever. acetaminoph 2020-0 Yes [id number] 650mg Take 1 Univers en 650 mg 5-21 tablet by ity o f CR tablet 00:00: mouth [place] 00 every 8 Medical (eight) Branch hours as needed for Pain or Fever. acetaminoph 2020-0 Yes [id number] 650mg Take 1 Univers en 650 mg 5-21 tablet by ity o f CR tablet 00:00: mouth [place] 00 every 8 Medical (eight) Branch hours as needed for Pain or Fever. acetaminoph 2020-0 Yes [id number] 650mg Take 1 Univers en 650 mg 5-21 tablet by ity o f CR tablet 00:00: mouth [place] 00 every 8 Medical (eight) Branch hours as needed for Pain or Fever. acetaminoph 2020-0 Yes [id number] 650mg Take 1 Univers en 650 mg [...] Immunizations Ordered Filled Immunization Date Status Comments [facility] e Immunization Name Name SARS-COV-2 COVID-19 2020-06-02 Completed Unive rsity of MODERNA VACCINE 00:00:00 [facility] [place] ical Branch SARS-COV-2 COVID-19 2020-06-02 Completed Unive rsity of MODERNA VACCINE 00:00:00 [facility] SARS-COV-2 COVID-19 2020-06-02 Completed Unive rsity of MODERNA VACCINE 00:00:00 [facility] Branch SARS-COV-2 COVID-19 2020-06-02 Completed Unive rsity of MODERNA VACCINE 00:00:00 [facility] SARS-COV-2 COVID-19 2020-06-02 Completed Unive rsity of MODERNA VACCINE 00:00:00 [facility] SARS-COV-2 COVID-19 2020-06-02 Completed Unive rsity of MODERNA VACCINE 00:00:00 [facility] SARS-COV-2 COVID-19 2020-05-03 Completed Unive rsity of MODERNA VACCINE 00:00:00 [facility] SARS-COV-2 COVID-19 2020-05-03 Completed Unive rsity of MODERNA VACCINE 00:00:00 [facility] SARS-COV-2 COVID-19 2020-05-03 Completed Unive rsity of MODERNA VACCINE 00:00:00 [facility] SARS-COV-2 COVID-19 2020-05-03 Completed Unive rsity of MODERNA VACCINE 00:00:00 [facility] SARS-COV-2 COVID-19 2020-05-03 Completed Unive rsity of MODERNA VACCINE 00:00:00 [facility] SARS-COV-2 COVID-19 2020-05-03 Completed Unive rsity of MODERNA VACCINE 00:00:00 [facility] Influenza Virus 2019-01-17 Completed Universit y of Vaccine [place] .5 mL 00:00:00 [facility] [place] [facility] 6+ MO Branch Influenza Virus 2019-01-17 Completed Universit y of Vaccine [place] .5 mL 00:00:00 [facility] [place] [facility] 6+ MO Branch Influenza Virus 2019-01-17 Completed Universit y of Vaccine [place] .5 mL 00:00:00 [facility] [place] [facility] 6+ MO Branch Influenza Virus 2019-01-17 Completed Universit y of Vaccine [place] .5 mL 00:00:00 [facility] [place] [facility] 6+ MO Branch Influenza Virus 2019-01-17 Completed Universit y of Vaccine [place] .5 mL 00:00:00 [facility] [place] [facility] 6+ MO Branch Influenza Virus 2019-01-17 Completed Universit y of Vaccine [place] .5 mL 00:00:00 [facility] [place] [facility] 6+ MO Branch Vital Signs Vital Name Observation Time Observation Value Comments Source Systolic blood 2021-03-27 16:23:00 125 mm[Hg] Univer sity of pressure [place] [facility] Diastolic blood 2021-03-27 16:23:00 74 mm[Hg] Unive rsity of pressure [facility] Heart rate 2021-03-27 16:23:00 74 /min Universi ty of [facility] Body temperature 2021-03-27 16:23:00 36.83 [place] [facility] Respiratory rate 2021-03-27 16:23:00 20 /min [facility] Body height 2021-03-27 16:23:00 172.7 cm Universi ty of [facility] Body weight 2021-03-27 16:23:00 117.935 kg Universi ty of [facility] BMI 2021-03-27 16:23:00 39.53 kg/m2 [facility] ty [facility] Oxygen saturation in 2021-03-27 16:23:00 98 /min [facility] Arterial blood by [facility] Pulse oximetry Branch Procedures Procedure Date / Time Performed Performing Clinician Sour e EXTERNAL PROVIDER 2021-06-17 05:01:00 Doctor Unassigned, No Univ [facility] RECORDS Name Medical Branch POCT URINALYSIS AUTO 2021-03-27 16:25:00 Lori Doss [facility] Encounters Start End Encounter Admission Attending Care Care Encounter Source Date/Time Date/Time Type Type Clinicians Facility Department ID 2021-07-09 Outpatient STLMLC STLMLC [id number] Common 08:38:04 [facility] 2021-11-18 2021-11-18 Refill [facility] [id number] [facility] 00:00:00 00:00:00 Hitesh GIRARD [id number] i ty [id number] [id number] [place] dical NAL 044 [facility] 2021-09-08 2021-09-08 Telephone [facility] [id number] [facility] 00:00:00 00:00:00 Hitesh GIRARD [id number] [id number] [phone] Wa dical NAL 044 [facility] 2021-06-222021-06-22 Telephone [facility] [id number] Univers 00:00:00 00:00:00 Hitesh GIRARD [id number] [id number] [phone] [facility] 044 [facility] 2021-06-17 2021-06-17 Orders Doctor ZAHRA [id number] Univers 00:00:00 00:00:00 Only Unassigned, CRISTIAN [id number] ity of [place] [facility] [id number] Alireza as [id number] [address] 2021-05-05 2021-05-05 [id number] Univers 08:00:00 08:00:00 HITESH choe [facility] 2021-04-11 2021-04-11 [facility] [id number] Univers 00:00:00 00:00:00 Hitesh GIRARD [id number] [id number] [id number] [facility] 044 [facility] 2021-03-27 2021-03-27 Office [facility] [id number] Univers 10:00:00 10:54:48 Visit Lori GIRARD [id number] i ty [facility] [id number] [id number] [facility] 098 [facility] Results Test Description Test Time Test Comments [...] 3267) clear Lab Interpretation (test code = 33237-9) Abnormal [facility]
[2021-11-29 15:48] LABS: Absolute Lymphocytes (CBC) 1.7 K/uL (0.7-4.9); Hematocrit 43.1 % (36.0-45.0); Lymphocytes % 13.3 % (15.3-44.8); MPV 7.6 fL (7.6-11.3); RBC Red Blood Cell Count 5.07 M/uL (3.86-4.86)
[2021-11-29] MEDS ORDERED: ALBUTEROL 2.5 MG/3 ML NEB SOL ONE (15:54)
[2021-11-29] MEDS ORDERED: IPRATROPIUM BROM 0.5MG/2.5ML ONE (15:54)
[2021-11-29] MEDS ORDERED: BEBTELOVIMAB 175 MG/2 ML VIAL IV ONE (15:56)
--- NOTE | 2021-11-29 16:03 | RAD REPORT ---
EXAM DESCRIPTION: Lucy Single View11/29/2021 3:53 pm CLINICAL HISTORY: Cough COMPARISON: none FINDINGS: The lungs appear clear of acute infiltrate. The heart is normal size IMPRESSION: No acute abnormalities displayed
[2021-11-29 16:21] LABS: Albumin 2.9 g/dL (3.4-5.0); Bilirubin Direct 0.1 mg/dL (0-0.2); Bilirubin Total 0.2 mg/dL (0.2-1.0); Magnesium 2.2 mg/dL (1.8-2.4); Protein, Total 7.1 g/dL (6.4-8.2)
[2021-11-29] MEDS ORDERED: NA CHLORIDE 0.9% 50 ML ONE (17:12)
[2021-11-29] MEDS ORDERED: CEFTRIAXONE 1000 MG/VIAL ONE (17:12)
--- NOTE | 2021-11-29 17:18 | ER ---
Nurse's Notes [facility] Name: Yessenia Weir Age: 61 yrs Sex: Female : 1960 Arrival Date: 11/29/2021 Time: 14:47 Bed 19 Private MD: Diagnosis: SARS-associated coronavirus as the cause of diseases classified elsewhere;Otitis media in diseases classified elsewhere, bilateral Presentation: 11/29 15:07 Chief complaint: Patient states: COVID PCR was positive yesterday , was seen at urgent iw care on Tuesday night and was given steroids, amoxicillin, cough medicine and inhaler, has not gotten better since then, was also told she has double ear infections, symptoms started Nov 20. Coronavirus screen: Client presents with at least one sign or symptom that may indicate coronavirus-19. Ebola Screen: Patient negative for fever greater than or equal to 101.5 degrees Fahrenheit, and additional compatible Ebola Virus Disease symptoms Patient denies exposure to infectious person. Patient denies travel to an Ebola-affected area in the 21 days before illness onset. No symptoms or risks identified at this time. Initial Sepsis Screen: Does the patient meet any 2 criteria? No. Patient's initial sepsis screen is negative. Does the patient have a suspected source of infection? No. Patient's initial sepsis screen is negative. Risk Assessment: Do you want to hurt yourself or someone else? Patient reports no desire to harm self or others. Onset of symptoms was November 20, 2021. 15:07 Method Of Arrival: Ambulatory iw 15:07 Acuity: VIVIANA 3 iw Historical: - Allergies: 15:10 Codeine; iw - PMHx: 15:10 Hypertensive disorder; UTI; pre-diabetic; iw - PSHx: 15:10 section; Cholecystectomy; knee sx; Tonsillectomy; iw - Immunization history:: Client reports receiving the 2nd dose of the Covid vaccine. - Social history:: Smoking status: Patient denies any tobacco usage or history of. Screenin:58 Abuse screen: Denies threats or abuse. Denies injuries from another. Nutritional mb8 screening: No deficits noted. Tuberculosis screening: No symptoms or risk factors identified. Fall Risk None identified. Assessment: 15:58 General: Appears uncomfortable, Behavior is calm, cooperative, appropriate for age. mb8 15:59 Respiratory: Reports cough that is non-productive. mb8 16:27 Reassessment: Patient and/or family updated on plan of care and expected duration. Pain mb8 level reassessed. Patient is alert, oriented x 3, equal unlabored respirations, skin warm/dry/pink. Patient feeling better after neb treatment. . Pain: Denies pain. Vital Signs: 15:07 BP 140 / 63; Pulse 84; Resp 19; Temp 98.4; Pulse Ox 96% on R/A; iw 16:27 BP 116 / 90; Pulse 84; Resp 20; Pulse Ox 96% ; mb8 Vitals: 16:27 Cardiac Rhythm Assessment Sinus rhythm. mb8 ED Course: 14:47 Patient arrived in ED. as 14:59 Rigoberto Olsen PA is PHCP. cp 14:59 Gibson Hurtado MD is Attending Physician. cp 15:10 Triage completed. iw 15:11 Arm band placed on. iw 15:36 Dequan Fenton, RN is Primary Nurse. mb8 15:50 Inserted saline lock: 20 gauge in right antecubital area, using aseptic technique. mb8 Blood collected. 15:54 XRAY Chest (1 view) In Process Unspecified. EDMS 15:58 Patient has correct armband on for positive identification. Bed in low position. Call mb8 light in reach. Side rails up X2. Client placed on continuous cardiac and pulse oximetry monitoring. NIBP monitoring applied. cardiac monitor technician on. 15:58 No provider procedures requiring assistance completed. mb8 17:49 IV discontinued, intact, bleeding controlled, No redness/swelling at site. Pressure mb8 dressing applied. Administered Medications: 15:57 Drug: Albuterol - atroVENT (ipratropium) (3:1) (2.5 mg - 0.5 mg) 3 ml Route: Nebulizer; mb8 17:50 Follow up: Response: No adverse reaction; Marked relief of symptoms mb8 15:57 Drug: Bebtelovimab 175 mg Route: IV; Rate: calculated rate; Site: right antecubital; mb8 16:00 Follow up: Response: No adverse reaction; IV Status: Completed infusion mb8 17:13 Drug: Rocephin - (cefTRIAXone) 1 grams Route: IVPB; Infused Over: 30 mins; Site: right mb8 antecubital; 17:45 Follow up: Response: No adverse reaction; IV Status: Completed infusion mb8 Medication: 15:58 VIS not applicable for this client. mb8 Outcome: 17:18 Discharge ordered by . sandhya 17:49 Discharged to home ambulatory, with family. mb8 17:49 Condition: stable 17:49 Discharge instructions given to patient, Instructed on discharge instructions, follow up and referral plans. medication usage, Demonstrated understanding of instructions, follow-up care, medications. 17:51 Patient left the ED. mb8 Signatures: Dispatcher [employer] Margarita Carreon Irene, RN RN Rigoberto Yousif PA PA cp Bates, Michael, RN RN mb8
--- NOTE | 2021-11-29 17:18 | EDPHYS ---
Physician Documentation [facility] Name: Yessenia Weir Age: 61 yrs Sex: Female : 1960 Arrival Date: 11/29/2021 Time: 14:47 Bed 19 Private MD: ED Physician Gibson Hurtado HPI: 11/29 15:35 This 61 yrs old Female presents to ER via Ambulatory with complaints of Cough - covid+. cp 15:35 The patient or guardian reports cough, that is constant, flu symptoms, arthralgias, cp myalgias. 15:35 Onset: The symptoms/episode began/occurred last week. Severity of symptoms: in the emergency department the symptoms are unchanged, despite home interventions. Associated signs and symptoms: Pertinent negatives: chest pain, diarrhea, fever, vomiting. Patient reports she tested positive for COVID-19 with [facility] test yesterday. Was seen at Urgent Care this past Tuesday and started on oral steroids, Amoxicillin antibiotic for ear infection and upper respiratory infection. Historical: - Allergies: 15:10 Codeine; iw - PMHx: 15:10 Hypertensive disorder; UTI; pre-diabetic; iw - PSHx: 15:10 section; Cholecystectomy; knee sx; Tonsillectomy; iw - Immunization history:: Client reports receiving the 2nd dose of the Covid vaccine. - Social history:: Smoking status: Patient denies any tobacco usage or history of. ROS: 15:40 Constitutional: Negative for body aches, chills, fever, poor PO intake. cp 15:40 Eyes: Negative for injury, pain, redness, and discharge. cp 15:40 ENT: Positive for ear pain, hearing loss, Negative for drainage from ear(s), difficulty swallowing, difficulty handling secretions. 15:40 Cardiovascular: Negative for chest pain, edema, palpitations. 15:40 Respiratory: Positive for cough, "sounds productive", Negative for wheezing. 15:40 Abdomen/GI: Negative for abdominal pain, vomiting, diarrhea, constipation. 15:40 Skin: Negative for rash. 15:40 Neuro: Negative for altered mental status, dizziness, weakness. 15:40 All other systems are negative. Exam: 15:45 Constitutional: The patient appears in no acute distress, alert, awake, cp non-diaphoretic, non-toxic, well developed, well nourished, obese. 15:45 Head/Face: Normocephalic, atraumatic. cp 15:45 Eyes: Periorbital structures: appear normal, Conjunctiva: normal, no exudate, no injection, Sclera: no appreciated abnormality, Lids and lashes: appear normal, bilaterally. 15:45 ENT: External ear(s): are unremarkable, Ear canal(s): erythema, that is moderate, bilaterally, swelling, is not appreciated, bilaterally, TM's: bulging, on the left, erythema, that is moderate, bilaterally, Nose: is normal, Mouth: Lips: moist, Oral mucosa: pink and intact, moist, Posterior pharynx: Airway: no evidence of obstruction, patent, Tonsils: no enlargement, no exudate, swelling, is not appreciated, erythema, is not appreciated, exudate, is not appreciated. 15:45 Neck: ROM/movement: is normal, is supple, without pain, no range of motions limitations, no meningismus, Lymph nodes: no appreciated lymphadenopathy. 15:45 Chest/axilla: Inspection: normal. 15:45 Cardiovascular: Rate: normal, Rhythm: regular, Edema: is not appreciated, JVD: is not appreciated. 15:45 Respiratory: the patient does not display signs of respiratory distress, Respirations: normal, no use of accessory muscles, no retractions, labored breathing, is not present, intercostal retractions, are absent, Breath sounds: bronchial sounds, that are mild, are heard diffusely, decreased breath sounds, are not appreciated, stridor, is not appreciated, + upper airway congestion. wheezing: is not appreciated. 15:45 Abdomen/GI: Inspection: abdomen appears normal, Palpation: abdomen is soft and non-tender, in all quadrants. 15:45 Back: pain, is absent, ROM is normal. 15:45 Skin: cellulitis, is not appreciated, no rash present. 15:45 Neuro: Orientation: to person, place \\T\\ time. Mentation: is normal, Motor: moves all fours, strength is normal, Sensation: is normal. 15:54 ECG was reviewed by the Attending Physician. cp Vital Signs: 15:07 BP 140 / 63; Pulse 84; Resp 19; Temp 98.4; Pulse Ox 96% on R/A; iw 16:27 BP 116 / 90; Pulse 84; Resp 20; Pulse Ox 96% ; mb8 MDM: 15:14 Patient medically screened. / 15:33 Order name: Basic Metabolic Panel; Complete Time: 16:36 / 16:36 Interpretation: Normal except: CL 109; GLUC 133; GFR 83. / 15:33 Order name: CBC with Diff; Complete Time: 16:36 / 16:50 Interpretation: Normal except: WBC 12.50; RBC 5.07; CONNIE% 74.0; LYM% 13.3; NEUT A 9.3; cp MNA 1.5. / 15:33 Order name: LFT's; Complete Time: 16:36 11/29 16:51 Interpretation: Normal except: ALB 2.9; GLOB 4.2; A/G 0.7. / 15:33 Order name: Magnesium; Complete Time: 16:36 11/29 15:33 Order name: XRAY Chest (1 view); Complete Time: 16:36 11/29 16:51 Interpretation: Report review. / 15:33 Order name: EKG; Complete Time: 15:34 / 15:33 Order name: Cardiac monitoring; Complete Time: 15:37 11/29 15:33 Order name: EKG - Nurse/Tech; Complete Time: 15:57 / 15:33 Order name: IV Saline Lock; Complete Time: 15:43 11/29 15:33 Order name: Labs collected and sent; Complete Time: 15:43 11/29 15:33 Order name: O2 Per Protocol; Complete Time: 15:37 11/29 15:33 Order name: O2 Sat Monitoring; Complete Time: 15:37 cp EC:54 Rate is 77 beats/min. Rhythm is regular. [place] interval is normal. QRS interval is normal. cp QT interval is normal. T waves are Inverted in lead aVR. Interpreted by me. Reviewed by me. Administered Medications: 15:57 Drug: Albuterol - atroVENT (ipratropium) (3:1) (2.5 mg - 0.5 mg) 3 ml Route: Nebulizer; mb8 17:50 Follow up: Response: No adverse reaction; Marked relief of symptoms mb8 15:57 Drug: Bebtelovimab 175 mg Route: IV; Rate: calculated rate; Site: right antecubital; mb8 16:00 Follow up: Response: No adverse reaction; IV Status: Completed infusion mb8 17:13 Drug: Rocephin - (cefTRIAXone) 1 grams Route: IVPB; Infused Over: 30 mins; Site: right mb8 antecubital; 17:45 Follow up: Response: No adverse reaction; IV Status: Completed infusion mb8 Disposition: 18:06 Co-signature as Attending Physician, Gibson Hurtado MD I agree with the assessment and kdr plan of care. Disposition Summary: 11/29/21 17:18 Discharge Ordered Location: Home cp Problem: new cp Symptoms: have improved cp Condition: Stable cp Diagnosis - SARS-associated coronavirus as the cause of diseases classified elsewhere cp - Otitis media in diseases classified elsewhere, bilateral cp Followup: cp - With: Private Physician - When: 2 - 3 days - Reason: Recheck today's complaints Discharge Instructions: - Discharge Summary Sheet cp - Otitis Media, Adult cp - Aspirin and Your Heart cp - COVID-19 cp - Things to Know about the COVID-19 Pandemic - [facility] cp - 10 Things You Can Do to Manage Your COVID-19 Symptoms at Home - [facility] cp - COVID-19: Quarantine vs. Isolation - [facility] cp - Prevent the Spread of COVID-19 if You Are Sick - [facility] cp Forms: - Medication Reconciliation Form cp - Thank You Letter cp - Antibiotic Education cp - Prescription Opioid Use cp Signatures: Dispatcher [employer] Gibson Rojas MD MD kdr Tonya Strange RN RN iw Page, Corey, PA PA cp Dequan Fenton RN RN mb8
[2021-11-29 18:13] VITALS: TEMP 98.4; O2SAT 96
[2021-11-29 18:26] VITALS: BP 116/90
--- NOTE | 2021-11-30 11:31 | EKG ---
Test Date: 2021-11-29 Test Time: 15:46:46 Skip Locator: [facility] MEASUREMENT RESULTS: Intervals: Rate: 77 FL: 162 QRSD: 84 QT: 392 QTc: 443 [place]: P: 63 FL: 162 QRS: 63 T: 37 INTERPRETIVE STATEMENTS: Normal sinus rhythm Cannot rule out Anterior infarct, age undetermined Abnormal ECG Compared to ECG 03/23/2011 09:38:03 Myocardial infarct finding now present Electronically Signed On 11-30-21 11:30:48 CDT by Artem Fernandez
== END 2021-11-29 17:51 | disposition home or self-care (01) ==
LOC: ER 14:45
DX: U07.1 COVID-19 (principal); H67.3 Otitis media in diseases classified elsewhere, bilateral; I10 Essential (primary) hypertension; Z88.5 Allergy status to narcotic agent
CPT/HCPCS: 36415; 71045; 80048; 80076; 83735; 85025; 93005; 94640; 96365; 96375; 99285

== ENCOUNTER 2024-01-16 19:18 | Emergency (ER) | payer OTHER ==
--- OUTSIDE RECORDS SUMMARY | 2024-01-16 19:21 | XMS REPORT | Continuity of Care Document ---
Author Name Unknown Address [address] [place] [address] [facility] Address [address] [place] [address] Care Team Providers Care Cherry Cutter Name Role Phone Hitesh Hooker MD Primary Care Physician + [phone] Hitesh Hooker MD Attending Clinician + Doctor Unassigned, [place] Attending Clinician U navailable HITESH HOOKER Attending Clinician Unavailable LORI DOSS Attending Clinician Unavailable Radha Nair MD Attending Clinician [phone] NEY DAVIS Attending Clinician Ney Montes MD Attending Clinician + [phone] Pob, [facility] Main Attending Clinician UnavailGayatri Mccall MD Attending Clinician [phone] GAYATRI CAMPUZANO Attending Clinician Unavailable 2, [facility] Attending Clinician Unavailable Emily Pizarro MD Attending Clinician + [phone] EMILY PIZARRO Attending Clinician Unavaila ble EMILY PIZARRO Attending Clinician Unavaila ble Tech, [facility] Sleep [facility] Attending Clinician Unavaila ble Only, Adc Test Attending Clinician Unavailable Shital Leyva Attending Clinician SHITAL GALE Attending Clinician UnavailDeena Hernadez Attending Clinician +[phone] DEENA QUEVEDO Attending Clinician Unavaila ble Provider, [facility] Attending Clinician Un available Luc Real MD Attending Clinician [phone] Zahra Bashir PA-C Attending Clinician [phone] ZAHRA BASHIR Attending Clinician Unavailable KOJO CAVAZOS Attending Clinician Unavailable RADHA NAIR Attending Clinician Unava ilnaveed Rodrigues RD, Gayatri Attending Clinician [phone] KOKO, GAYATRI Attending Clinician Unavailable NEY DAVIS Admitting Clinician RADHA Holt Admitting Clinician Unava ilable Payers Payer Name Policy Type Policy Number Effective Date Expirati on Date Source Problems Condition Name Condition Details Condition Category Status Onset Date Resolution Date Last Treatment Date Treating Clinician Comments Source Prediabete s Prediabete s Disease Active 2020-03 0-22 00:00: 00 [facility] Dysuria Dysuria Disease Active 09-05 00:00: 00 [facility] History of UTI History of UTI Disease Active 09-05 00:00: 00 [facility] CKD (chronic kidney disease) stage 2, GFR 60-89 ml/min CKD (chronic kidney disease) stage 2, GFR 60-89 ml/min Disease Active 09-05 00:00: 00 [facility] Urinary frequency Urinary frequency Disease Active 6 00:00: 00 [facility] Recurrent UTI Recurrent UTI Disease Active 6 00:00: 00 [facility] Decreased GFR Decreased GFR Disease Active 6 00:00: 00 [facility] Gastroesop hageal reflux disease without esophagiti s Gastroesop hageal reflux disease without esophagiti s Disease Active 3-29 00:00: 00 [facility] Sleep apnea, unspecifie d type Sleep apnea, unspecifie d type Disease Active 2018-03 2-15 00:00: 00 [facility] Irritable bowel syndrome with diarrhea Irritable bowel syndrome with diarrhea Disease Active 2018-03 0-26 00:00: 00 [facility] Annual physical exam Annual physical exam Disease Active 2018-03 00:00: 00 [facility] Need for prophylact ic vaccinatio n against Streptococ cus pneumoniae (pneumococ cus) Need for prophylact ic vaccinatio n against Streptococ cus pneumoniae (pneumococ cus) Disease Active 2018-03 00:00: 00 [facility] Need for hepatitis C screening test Need for hepatitis C screening test Disease Active 2018-03 00:00: 00 [facility] Need for prophylact ic vaccinatio n against Streptococ cus pneumoniae (pneumococ cus) Need for prophylact ic vaccinatio n against Streptococ cus pneumoniae (pneumococ cus) Disease Active 2018-03 00:00: 00 [facility] Essential hypertensi on Essential hypertensi on Disease Active 2018-03 00:00: 00 [facility] Morbid obesity with body mass index (BMI) of 40.0 or higher Morbid obesity with body mass index (BMI) of 40.0 or higher Disease Active 07-16 00:00: 00 [facility] SVT (supravent ricular tachycardi a) SVT (supravent ricular tachycardi a) Disease Active 07-16 00:00: 00 [facility] Diverticul itis Diverticul itis Disease Active 07-16 00:00: 00 [facility] Diverticul osis Diverticul osis Disease Active 07-16 00:00: 00 [facility] Neuralgia Neuralgia Disease Active 07-16 00:00: 00 [facility] H/O thyroid disease H/O thyroid disease Disease Active 2012-03 00:00: 00 [facility] B12 deficiency B12 deficiency Disease Active 2012-03 00:00: 00 [facility] Vitamin D deficiency Vitamin D deficiency Disease Active 2012-03 00:00: 00 [facility] Allergies, Adverse Reactions, Alerts Allergy Name Allergy Type Status Severity Reaction(s) Onset Date Inactive Date Treating Clinician Comments Source CODEINE DRUG INGREDI Active N/V 07-16 00:00: 00 [facility] Codeine Propensi ty to adverse reaction s Active Nausea and/or Vomiting 07-16 00:00: 00 [facility] Social History Social Habit Start Date Stop Date Quantity Comments Source [facility] SDOH Alcohol Frequency [facility] History SDOH Alcohol Std Drinks [facility] History SDOH Alcohol Binge [facility] Exposure to SARS-CoV-2 (event) 2021-02-25 00:00:00 2021-03-27 09:49:00 Not sure [facility] History of Social function 2021-03-27 00:00:00 2021-03-27 00:00:00 [facility] Alcohol intake 2021-03-27 00:00:00 2021-03-27 00:00:00 0 /d [facility] Tobacco use and exposure 2014-07-16 00:00:00 2014-07-16 00:00:00 Smokeless tobacco non-user [facility] Alcohol Comment 2014-07-16 00:00:00 2014-07-16 00:00:00 1-2 drinks per month [facility] Sex Assigned At 1960 00:00:00 1960 00:00:00 [facility] Smoking Status Start Date Stop Date Source Never smoked tobacco [facility] Medications Ordered Medication Name Filled Medication Name Start Date Stop Date Current Medication? Ordering Clinician Indication Dosage Frequency Signature (SIG) Comments Components Source omeprazole 40 mg capsule 07-22 00:00: 00 Yes [id number] 40mg Take 1 capsule by mouth in the morning. [facility] OMEPRAZOLE 40 mg capsule 824 00:00: 00 Yes [id number] 40mg TAKE 1 CAPSULE BY MOUTH DAILY [facility] RESTASIS 0.05 % ophthalmic drops 1 00:00: 00 Yes [id number] INSTILL 1 DROP IN BOTH EYES EVERY 12 HOURS [facility] RESTASIS 0.05 % ophthalmic drops 04-11 00:00: 00 Yes [id number] INSTILL 1 DROP IN BOTH EYES EVERY 12 HOURS [facility] METOPROLOL TARTRATE 25 mg tablet 2020-03 2- 00:00: 00 Yes [id number] TAKE 1 TABLET BY MOUTH DAILY [facility] estradioL (ESTRACE) 0.01 % (0.1 mg/gram) vaginal cream 2020-03 1 00:00: 00 Yes [id number] Apply 1g vaginally at bedtime every night for 2 weeks and then apply 1g vaginally at bedtime 3 times per week (Tuesday//) [facility] cycloSPORIN E (RESTASIS) 0.05 % drops 2020-03 0- 17:06: 10 01-16 00:00 :00 No 1[drp] Place 1 Drop in both eyes every 12 (twelve) hours. [facility] cycloSPORIN E (RESTASIS) 0.05 % drops 2020-03 00:00: 00 Yes [id number] 1[drp] Place 1 Drop in both eyes every 12 (twelve) hours. [facility] phentermine 30 mg capsule 2020-03 0-06 00:00: 00 Yes [id number] 104 TAKE 1 CAPSULE BY MOUTH EVERY MORNING [facility] omeprazole 40 mg capsule 2020-03 0-05 00:00: 00 11-18 00:00 :00 No [id number] 40mg Take 1 capsule by mouth daily. [facility] phentermine 30 mg capsule 8-04 00:00: 00 12-30 00:00 :00 No [id number] 104 TAKE 1 CAPSULE BY MOUTH EVERY MORNING [facility] metoprolol tartrate 25 mg tablet 6-02 00:00: 00 03-27 00:00 :00 No [id number] 25mg Take 1 tablet by mouth 2 (two) times daily. [facility] omeprazole 40 mg capsule 5-28 00:00: 00 12-30 00:00 :00 No [id number] 40mg Take 1 capsule by mouth daily. [facility] phentermine 30 mg capsule 3-26 00:00: 00 10-29 00:00 :00 No [id number] 104 TAKE ONE CAPSULE BY MOUTH EVERY MORNING [facility] diphenoxyla te-atropine (LOMOTIL) 2.5-0.025 mg per tablet 09-03 00:00: 00 Yes [id number] 1{tbl} Take 1 tablet by mouth every 6 (six) hours as needed (IBS diarrhea/c ramping predominan t). [facility] acetaminoph en 650 mg CR tablet 08-15 00:00: 00 Yes [id number] 650mg Take 1 tablet by mouth every 8 (eight) hours as needed for Pain or Fever. [facility] cyanocobala min, vitamin B-12, (VITAMIN B-12) 5,000 mcg/mL Drop 2018-03 08:51: 29 Yes 1[drp] Place 1 Drop under the tongue daily. [facility] CALCIUM CARBONATE/V ITAMIN D3 (VITAMIN D-3 ORAL) 2018-03 08:51: 29 Yes 2{capsu le} Take 2 Caps by mouth daily. [facility] Immunizations Ordered Immunization Name Filled Immunization Name Date Status Comments Source SARS-COV-2 COVID-19 MODERNA VACCINE 2020-06-02 00:00:00 Completed [facility] SARS-COV-2 COVID-19 MODERNA VACCINE 2020-06-02 00:00:00 Completed [facility] SARS-COV-2 COVID-19 MODERNA VACCINE 2020-06-02 00:00:00 Completed [facility] SARS-COV-2 COVID-19 MODERNA VACCINE 2020-06-02 00:00:00 Completed [facility] SARS-COV-2 COVID-19 MODERNA VACCINE 2020-06-02 00:00:00 Completed [facility] SARS-COV-2 COVID-19 MODERNA VACCINE 2020-06-02 00:00:00 Completed [facility] SARS-COV-2 COVID-19 MODERNA 12+ YRS VACCINE 2020-06-02 00:00:00 Completed [facility] SARS-COV-2 COVID-19 MODERNA VACCINE 2020-05-03 00:00:00 Completed [facility] SARS-COV-2 COVID-19 MODERNA VACCINE 2020-05-03 00:00:00 Completed [facility] SARS-COV-2 COVID-19 MODERNA VACCINE 2020-05-03 00:00:00 Completed [facility] SARS-COV-2 COVID-19 MODERNA VACCINE 2020-05-03 00:00:00 Completed [facility] SARS-COV-2 COVID-19 MODERNA VACCINE 2020-05-03 00:00:00 Completed [facility] SARS-COV-2 COVID-19 MODERNA VACCINE 2020-05-03 00:00:00 Completed [facility] SARS-COV-2 COVID-19 MODERNA 12+ YRS VACCINE 2020-05-03 00:00:00 Completed [facility] Influenza Virus Vaccine Quad .5 mL IM 6+ MO 2019-01-17 00:00:00 Completed [facility] Influenza Virus Vaccine Quad .5 mL IM 6+ MO 2019-01-17 00:00:00 Completed [facility] Influenza Virus Vaccine Quad .5 mL IM 6+ MO 2019-01-17 00:00:00 Completed [facility] Influenza Virus Vaccine Quad .5 mL IM 6+ MO 2019-01-17 00:00:00 Completed [facility] Influenza Virus Vaccine Quad .5 mL IM 6+ MO 2019-01-17 00:00:00 Completed [facility] Influenza Virus Vaccine Quad .5 mL IM 6+ MO 2019-01-17 00:00:00 Completed [facility] Influenza Virus Vaccine Quad .5 mL IM 6+ MO 2019-01-17 00:00:00 Completed [facility] Influenza Virus Vaccine Quad .5 mL IM 6+ MO (FLUZONE/FLULAVAL/F LUARIX) Unknown Completed [facility] SARS-COV-2 COVID-19 MODERNA 12+ YRS VACCINE Unknown Completed [facility] Influenza Virus Vaccine Quad .5 mL IM 6+ MO (FLUZONE/FLULAVAL/F LUARIX) Unknown Completed [facility] SARS-COV-2 COVID-19 MODERNA 12+ YRS VACCINE Unknown Completed [facility] Influenza Virus Vaccine Quad .5 mL IM 6+ MO (FLUZONE/FLULAVAL/F LUARIX) Unknown Completed [facility] SARS-COV-2 COVID-19 MODERNA 12+ YRS VACCINE Unknown Completed [facility] Influenza Virus Vaccine Quad .5 mL IM 6+ MO (FLUZONE/FLULAVAL/F LUARIX) Unknown Completed [facility] SARS-COV-2 COVID-19 MODERNA 12+ YRS VACCINE Unknown Completed [facility] Influenza Virus Vaccine Quad .5 mL IM 6+ MO (FLUZONE/FLULAVAL/F LUARIX) Unknown Completed [facility] SARS-COV-2 COVID-19 MODERNA 12+ YRS VACCINE Unknown Completed [facility] Influenza Virus Vaccine Quad .5 mL IM 6+ MO (FLUZONE/FLULAVAL/F LUARIX) Unknown Completed [facility] SARS-COV-2 COVID-19 MODERNA 12+ YRS VACCINE Unknown Completed [facility] Influenza Virus Vaccine Quad .5 mL IM 6+ MO (FLUZONE/FLULAVAL/F LUARIX) Unknown Completed [facility] SARS-COV-2 COVID-19 MODERNA 12+ YRS VACCINE Unknown Completed [facility] Vital Signs Vital Name Observation Time Observation Value Comments S ource Systolic blood pressure 2021-03-27 16:23:00 125 mm[Hg[facility] Diastolic blood pressure 2021-03-27 16:23:00 74 mm[Hg] [facility] Heart rate 2021-03-27 16:23:00 74 /min [facility] Body temperature 2021-03-27 16:23:00 36.83 Saloni [facility] Respiratory rate 2021-03-27 16:23:00 20 /min [facility] Body height 2021-03-27 16:23:00 172.7 cm [facility] Body weight 2021-03-27 16:23:00 117.935 kg [facility] BMI 2021-03-27 16:23:00 39.53 kg/m2 [facility] Oxygen saturation in Arterial blood by Pulse oximetry 2021-03-27 16:23:00 98 /min [facility] Procedures Procedure Date / Time Performed Performing Clinicia n Source EXTERNAL PROVIDER RECORDS 2021-06-17 05:01:00 Doctor Unassigned, [place] [facility] POCT URINALYSIS AUTO 2021-03-27 16:25:00 Haleigh Doss [facility] Encounters Start Date/Time End Date/Time Encounter Type Admission Type Attending [facility] Facility Care Department Encounter ID Source 2023-04-04 11:30:01 Outpatient [facility] [id number] [facility] 2021-07-09 08:38:[address] [facility] [id number] [facility] 2023-03-28 00:00:00 2023-03-28 00:00:[address] [facility] 1.2.840.114 350.1.13.10 4.2.7.2.686 [id number] [facility] 2022-07-22 00:00:00 2022-07-22 00:00:[address] [facility] 1.2.840.114 350.1.13.10 4.2.7.2.686 [id number] [facility] 2021-11-18 00:00:00 2021-11-18 00:00:[address] [facility] 1.2.840.114 350.1.13.10 4.2.7.2.686 [id number] [facility] 2021-09-08 00:00:00 2021-09-08 00:00:[address] [facility] 1.2.840.114 350.1.13.10 4.2.7.2.686 [id number] [facility] 2021-06-22 00:00:00 2021-06-22 00:00:[address] [facility] 1.2.840.114 350.1.13.10 4.2.7.2.686 [id number] [facility] 2021-06-17 00:00:00 2021-06-17 00:00:00 Orders Only Doctor Unassigned, [place] [facility] 1.2840.114 350.1.13.10 4.2.7.2.686 [id number] [facility] 2021-05-05 08:00:00 2021-05-05 08:00:00 Outpatient R HITESH HOOKER [facility] [id number] [facility] 2021-04-17 00:00:00 2021-04-17 00:00:00 Patient Secure Msg Hitesh Hooker [facility] 1.2.840.114 350.1.13.10 4.2.7.2.686 [id number] [facility] 2021-04-11 00:00:00 2021-04-11 00:00:00 Refill Hitesh Hooker [facility] 1.2.840.114 350.1.13.10 4.2.7.2.686 [id number] [facility] 2021-03-27 10:00:00 2021-03-27 10:54:48 Outpatient R LORI DOSS [facility] [id number] [facility] 2021-03-27 10:00:00 2021-03-27 10:54:48 Office Visit Lori Doss [facility] 1.2.840.114 350.1.13.10 4.2.7.2.686 [id number] [facility] 2021-03-27 10:00:00 2021-03-27 10:54:48 Outpatient R LORI DOSS [facility] [id number] [facility] 2021-03-27 10:00:00 2021-03-27 10:00:00 Outpatient R LORI DOSS [facility] [id number] [facility] 2021-03-27 00:00:00 2021-03-27 00:00:[address] [facility] 1..840.114 350.1.13.10 4.2.7.2.686 [id number] [facility] 2021-03-24 00:00:00 2021-03-24 00:00:[address] [facility] 1.2.840.114 350.1.13.10 4.2.7.2.686 [id number] [facility] 2021-03-23 00:00:00 2021-03-23 00:00:00 Orders Only Doctor Unassigned, [place] [facility] 1.2.840.114 350.1.13.10 4.2.7.2.686 [id number] [facility] 2021-03-23 00:00:00 2021-03-23 00:00:00 Patient Secure Msg Lori Doss [facility] 1..840.114 350.1.13.10 4.2.7.2.686 [id number] [facility] 2021-03-17 00:00:00 2021-03-17 00:00:[address] [facility] 1.2.840.114 350.1.13.10 4.2.7.2.686 [id number] [facility] 2021-03-16 00:00:00 2021-03-16 00:00:[address] [facility] 1.2840.114 350.1.13.10 4.2.7.2.686 [id number] [facility] 2021-03-13 16:14:30 2021-03-13 23:59:00 Outpatient R NEY FIELDS [facility] [id number] [facility] 2021-03-13 16:14:30 2021-03-13 23:59:00 Outpatient R LORA Batista TOBIN [facility] [id number] [facility] 2021-03-13 16:00:00 2021-03-13 23:59:00 Hospital Encounter Ney Fields [facility] 1.2840.114 350.1.13.10 4.2.7.2.686 [id number] [facility] 2021-03-12 13:00:00 2021-03-12 13:15:00 Bounty Trapper Visit Pob, Adc Lab [facility] 1.2840.114 350.1.13.10 4.2.7.2.686 [id number] [facility] 2021-03-12 13:00:00 2021-03-12 13:00:00 [id number] 2021-03-11 00:00:00 2021-03-11 00:00:00 [facility] 1.2.840.114 350.1.13.10 4.2.7.2.686 [id number] [facility] 2021-03-06 16:42:07 2021-03-06 16:57:07 Bounty Trapper Visit Pob, Adc Lab [facility] 1.2840.114 350.1.13.10 4.2.7.2.686 [id number] [facility] 2021-03-06 16:45:00 2021-03-06 16:45:00 [facility] [id number] 2021-03-06 00:00:00 2021-03-06 00:00:00 Telephone Romario [facility] 1.84.114 350.1.13.10 4.2.7.2.686 [id number] [facility] 2021-03-06 00:00:00 2021-03-06 00:00:00 Orders Only Doctor Unassigned, [place] [facility] 1.84.114 350.1.13.10 4.2.7.2.686 [id number] [facility] 2021-02-25 08:24:51 2021-02-25 08:39:51 [facility] 1.840.114 350.1.13.10 4.2.7.2.686 [id number] [facility] 2021-02-25 08:15:00 2021-02-25 08:15:00 [facility] [id number] 2021-02-23 15:30:00 2021-02-23 15:30:00 [facility] [id number] 2021-02-18 00:00:00 2021-02-18 00:00:00 Orders Only Doctor Unassigned, [place] [facility] 1..114 350.1.13.10 4.2.7.2.686 [id number] [facility] 2021-02-17 08:45:00 2021-02-17 08:45:00 Outpatient R ROMARIO [facility] [id number] [facility] 2021-02-17 08:07:57 2021-02-17 08:22:57 Bounty Trapper Visit 2, Adc Lab Lori Doss [facility] 1.2.840.114 350.1.13.10 4.2.7.2.686 [id number] [facility] 2021-02-16 00:00:00 2021-02-16 00:00:00 [facility] 1.2.840.114 350.1.13.10 4.2.7.2.686 [id number] [facility] 2021-01-30 00:00:00 2021-01-30 00:00:00 [facility] 1.2.840.114 350.1.13.10 4.2.7.2.686 [id number] [facility] 2021-01-30 00:00:00 2021-01-30 00:00:00 [facility] 1.2.840.114 350.1.13.10 4.2.7.2.686 [id number] [facility] 2021-01-26 10:33:56 2021-01-26 12:06:21 Office Visit Lori Doss [facility] 1.2.840.114 350.1.13.10 4.2.7.2.686 [id number] [facility] 2021-01-26 10:30:00 2021-01-26 12:06:21 Outpatient R LORI DOSS [facility] [id number] [facility] 2021-01-26 10:30:00 2021-01-26 12:06:21 Outpatient R LORI DOSS [facility] [id number] [facility] 2021-01-26 00:00:00 2021-01-26 00:00:00 Orders Only Doctor Unassigned, [place] [facility] 1.2.840.114 350.1.13.10 4.2.7.2.686 [id number] [facility] 2021-01-22 00:00:00 2021-01-22 00:00:00 Patient Secure Msg Doctor Unassigned, [place] [facility] 1.2.840.114 350.1.13.10 4.2.7.2.686 [id number] [facility] 2021-01-20 00:00:00 2021-01-20 00:00:00 Patient Secure Msg Hitesh Hooker [facility] 1.2.840.114 350.1.13.10 4.2.7.2.686 [id number] [facility] [facility]:00:00 2021-01-20 00:00:00 Telephone Hitesh Hooker [facility] Building 1.2.840.114 350.1.13.10 4.2.7.2.686 [id number] [facility] 2021-01-16 15:45:11 2021-01-16 16:05:11 Office Visit Hitesh Hooker [facility] Building 1.2.840.114 350.1.13.10 4.2.7.2.686 [id number] [facility] 2021-01-16 16:00:00 2021-01-16 16:00:00 Outpatient R HITESH HOOKER [facility] [id number] [facility] 2021-01-14 14:52:13 2021-01-14 15:08:02 Office Visit Emily Pizarro [facility] Building 1.2.840.114 350.1.13.10 4.2.7.2.686 [id number] [facility] 2021-01-14 14:40:00 2021-01-14 14:40:00 Outpatient R EMILY PIZARRO STRAHIL [facility] [id number] [facility] 2020-12-30 00:00:00 2020-12-30 00:00:00 [facility] 1.2.840.114 350.1.13.10 4.2.7.2.686 [id number] [facility] 2020-12-30 00:00:00 2020-12-30 00:00:00 Refill [facility] Building 1.2.840.114 350.1.13.10 4.2.7.2.686 [id number] [facility] 2020-12-29 00:00:00 2020-12-29 00:00:00 Patient Secure Msg [facility] Building 1.2.840.114 350.1.13.10 4.2.7.2.686 [id number] [facility] 2020-12-16 14:43:24 2020-12-16 14:58:24 Bounty Trapper Visit [facility] Emily Pizarro [facility] 1.2.840.114 350.1.13.10 4.2.7.2.686 [id number] [facility] 2020-12-16 14:30:00 2020-12-16 14:30:00 Outpatient R [facility] [id number] [facility] 2020-12-16 09:00:00 2020-12-16 09:00:00 Outpatient R EMILY PIZARRO STRASDNathan [facility] [id number] [facility] 2020-12-16 00:00:00 2020-12-16 00:00:00 Orders Only Doctor Unassigned, [place] [facility] 1..114 350.1.13.10 4.2.7.2.686 [id number] [facility] 2020-12-12 07:58:02 2020-12-12 08:13:02 Laboratory Only Only, Adc Test Emily Pizarro [facility] 1..114 350.1.13.10 4.2.7.2.686 [id number] [facility] 2020-12-12 07:45:00 2020-12-12 07:45:00 Outpatient R [facility] [id number] [facility] 2020-12-10 00:00:00 2020-12-10 00:00:00 [facility] 1.114 350.1.13.10 4.2.7.2.686 [id number] [facility] 2020-12-05 08:00:00 2020-12-05 23:59:00 Hospital Encounter Hitesh Hooker [facility] 1..114 350.1.13.10 4.2.7.2.686 [id number] [facility] 2020-12-05 00:00:00 2020-12-05 00:00:00 Outpatient R HITESH HOOKER [facility] [id number] [facility] 2020-12-03 16:20:16 2020-12-03 16:40:16 Office Visit Emily Pizarro [facility] Building 1..114 350.1.13.10 4.2.7.2.686 [id number] [facility] 2020-12-03 16:20:00 2020-12-03 16:20:00 Outpatient R EMILY PIZARRO STRAHIL [facility] [id number] [facility] 2020-12-02 14:47:19 2020-12-02 16:32:56 Office Visit Shital Gale [facility] 1..840.114 350.1.13.10 4.2.7.2.686 [id number] [facility] 2020-12-02 15:00:00 2020-12-02 15:00:00 Outpatient R SHITAL GALE [facility] [id number] [facility] 2020-12-02 15:00:00 2020-12-02 15:00:00 Outpatient SHITAL MARTINEZ [facility] [id number] [facility] 2020-12-01 00:00:00 2020-12-01 00:00:00 Patient [address]itesh Hooker [facility] 1..840.114 350.1.13.10 4.2.7.2.686 [id number] [facility] 2020-11-27 16:20:00 2020-11-27 16:20:00 Outpatient HITESH MOLINA [facility] [id number] [facility] 2020-11-27 09:00:33 2020-11-27 09:15:33 Bounty Trapper Visit Pob, Adc Lab Main Baljinder [facility] Building 1..840.114 350.1.13.10 4.2.7.2.686 [id number] [facility] 2020-11-27 09:00:33 2020-11-27 09:15:33 Bounty Trapper Visit Poyasmin, Adc Lab Main Baljinder [facility] Building 1..840.114 350.1.13.10 4.2.7.2.686 [id number] [facility] 2020-11-27 09:00:00 2020-11-27 09:00:00 Outpatient R BALJINDER SHITAL [facility] [id number] [facility] 2020-11-21 00:00:00 2020-11-21 00:00:00 Telephone Baljinder [facility] 1.840.114 350.1.13.10 4.2.7.2.686 [id number] [facility] 2020-11-21 00:00:00 2020-11-21 00:00:00 Telephone Baljinder [facility] 1.840.114 350.1.13.10 4.2.7.2.686 [id number] [facility] 2020-10-22 00:00:00 2020-10-22 00:00:00 Hitesh Cartwright [facility] 1..840.114 350.1.13.10 4.2.7.2.686 [id number] [facility] 2020-10-15 16:30:00 2020-10-15 16:30:00 Outpatient EMILY PATTERSON STRAHIL [facility] [id number] [facility] 2020-10-14 08:29:10 2020-10-14 08:59:10 Office Visit Deena Quevedo [facility] 1.840.114 350.1.13.10 4.2.7.2.686 [id number] [facility] 2020-10-14 08:30:00 2020-10-14 08:30:00 Outpatient DEENA GARCIA [facility] [id number] [facility] 2020-09-18 10:32:37 2020-09-18 11:02:37 Office Visit Deena Quevedo [facility] 1.2840.114 350.1.13.10 4.2.7.2.686 [id number] [facility] 2020-09-18 10:30:00 2020-09-18 10:30:00 Outpatient R CARMENCITA QUEVEDOSIE [facility] [id number] [facility] 2020-09-17 00:00:00 2020-09-17 00:00:00 Patient Secure [facility] 1.2840.114 350.1.13.10 4.2.7.2.686 [id number] [facility] 2020-09-17 00:00:00 2020-09-17 00:00:00 Patient [facility] 1.20.114 350.1.13.10 4.2.7.2.686 [id number] [facility] 2020-09-12 17:00:00 2020-09-12 23:59:00 Hospital Encounter Deena Quevedo [facility] 1.2840.114 350.1.13.10 4.2.7.2.686 [id number] [facility] 2020-09-12 00:00:00 2020-09-12 00:00:00 Outpatient R CARMENCITA QUEVEDOSIE [facility] [id number] [facility] 2020-09-04 00:00:00 2020-09-04 00:00:00 Patient Secure Msg Doctor Unassigned, [place] [facility] 1.2840.114 350.1.13.10 4.2.7.2.686 [id number] [facility] 2020-09-03 08:24:47 2020-09-03 08:54:47 Office Visit Deena Quevedo [facility] 1.2.114 350.1.13.10 4.2.7.2.686 [id number] [facility] 2020-09-03 08:30:00 2020-09-03 08:30:00 Outpatient R BELINDAALEXSANDERJEROME DEENA [facility] [id number] [facility] 2020-09-03 00:00:00 2020-09-03 00:00:00 Orders Only Doctor Unassigned, [place] [facility] 1..114 350.1.13.10 4.2.7.2.686 [id number] [facility] 2020-08-27 09:37:00 2020-08-27 12:24:36 Telemedici ne Visit Hitesh Hooker [facility] Building 1..114 350.1.13.10 4.2.7.2.686 [id number] [facility] 2020-08-27 08:55:00 2020-08-27 08:55:00 Outpatient R HITESH HOOKER [facility] [id number] [facility] 2020-08-27 00:00:00 2020-08-27 00:00:00 [facility] 1.84.114 350.1.13.10 4.2.7.2.686 [id number] [facility] 2020-08-26 00:00:00 2020-08-26 00:00:00 Patient Secure Msg [facility] 1.2.114 350.1.13.10 4.2.7.2.686 [id number] [facility] 2020-08-23 10:48:52 2020-08-23 11:24:13 Urgent Care Provider, [facility] Building One 1.114 350.1.13.10 4.2.7.2.686 [id number] [facility] 2020-08-23 10:40:00 2020-08-23 10:40:00 Outpatient R [facility] [id number] [facility] 2020-08-21 00:00:00 2020-08-21 00:00:00 Refill Hitesh Hooker [facility] Building 1.114 350.1.13.10 4.2.7.2.686 [id number] [facility] 2020-08-05 20:18:03 2020-08-05 20:38:03 Urgent Care Provider, [facility] Zahra Bashir [facility] One 1.114 350.1.13.10 4.2.7.2.686 [id number] [facility] 2020-08-05 20:20:00 2020-08-05 20:20:00 Outpatient R ZAHRA BASHIR [facility] [id number] [facility] 2020-08-05 00:00:00 2020-08-05 00:00:00 Orders Only Doctor Unassigned, [place] [facility] 1.114 350.1.13.10 4.2.7.2.686 [id number] [facility] 2020-06-26 00:00:00 2020-06-26 00:00:00 Patient Secure Msg Hitesh Hooker [facility] Building 1.2.840.114 350.1.13.10 4.2.7.2.686 [id number] [facility] 2020-06-20 09:41:56 2020-06-20 09:56:56 Bounty Trapper Visit 2, Adc Lab [facility] Hook[facility] 1.2840.114 350.1.13.10 4.2.7.2.686 [id number] [facility] 2020-06-20 07:50:10 2020-06-20 09:31:46 Telemedici ne Visit Hitesh Hooker [facility] Building 1.284.114 350.1.13.10 4.2.7.2.686 [id number] [facility] 2020-06-20 09:00:00 2020-06-20 09:00:00 Outpatient R HITESH HOOKER [facility] [id number] [facility] 2020-06-02 09:30:00 2020-06-02 09:30:00 Outpatient KOJO GEORGE [facility] [id number] [facility] 2020-05-31 15:45:00 2020-05-31 15:45:00 Outpatient [facility] [id number] [facility] 2020-05-14 08:00:00 2020-05-14 08:00:00 Outpatient HITESH MOLINA [facility] [id number] [facility] 2020-05-03 15:50:00 2020-05-03 15:50:00 Outpatient [facility] [id number] [facility] 2019-12-19 00:00:00 2019-12-19 00:00:00 Orders Only Doctor Unassigned, [place] [facility] 1.2840.114 350.1.13.10 4.2.7.2.686 [id number] [facility] 2019-10-31 08:45:07 2019-10-31 23:59:00 Outpatient RADHA GARCIA [facility] [id number] [facility] 2019-10-31 08:40:00 2019-10-31 23:59:00 Hospital Encounter Radha Nair [facility] 1.2.840.114 350.1.13.10 4.2.7.2.686 [id number] [facility] 2019-10-31 00:00:00 2019-10-31 00:00:00 Outpatient RADHA GARCIA [facility] [id number] [facility] 2019-09-04 15:40:00 2019-09-04 15:40:00 Outpatient Phillip HITESH HOOKER [facility] [id number] [facility] 2019-09-04 00:00:00 2019-09-04 00:00:00 Refill Hitesh Hooker [facility] 1.2.840.114 350.1.13.10 4.2.7.2.686 [id number] [facility] 2019-08-17 09:00:00 2019-08-17 09:00:00 Outpatient HITESH MOLINA [facility] [id number] [facility] 2019-08-15 00:00:00 2019-08-15 00:00:00 Patient Secure Hitesh Hooker [facility] 1.2.840.114 350.1.13.10 4.2.7.2.686 [id number] [facility] 2019-08-10 07:20:00 2019-08-10 07:20:00 Outpatient HITESH MOLINA [facility] [id number] [facility] 2019-07-30 10:00:00 2019-07-30 10:00:00 Outpatient RADHA GARCIA [facility] [id number] [facility] 2019-07-30 09:10:32 2019-07-30 09:25:32 Bounty Trapper Visit 2, Adc Lab Radha Nair [facility] Building 1.2.840.114 350.1.13.10 4.2.7.2.686 [id number] [facility] 2019-07-30 00:00:00 2019-07-30 00:00:00 Orders Only Doctor Unassigned, [place] [facility] 1.2.840.114 350.1.13.10 4.2.7.2.686 [id number] [facility] 2019-07-27 15:40:00 2019-07-27 15:40:00 Outpatient R HITESH HOOKER [facility] [id number] [facility] 2019-07-10 08:20:00 2019-07-10 08:20:00 Outpatient R HITESH HOOKER [facility] [id number] [facility] 2019-06-30 00:00:00 2019-06-30 00:00:00 Refill Hitesh Hooker [facility] 1.2.840.114 350.1.13.10 4.2.7.2.686 [id number] [facility] 2019-06-21 10:00:14 2019-06-21 15:21:31 Product Sales Representative Visit Koko [facility] 1.2.840.114 350.1.13.10 4.2.7.2.686 [id number] [facility] 2019-06-21 15:00:00 2019-06-21 15:00:00 Outpatient R [facility] [id number] [facility] 2019-04-30 00:00:00 2019-04-30 00:00:00 Patient Secure Msg Radha Nair [facility] 1.2.840.114 350.1.13.10 4.2.7.2.686 [id number] [facility] Results Test Description Test Time Test Comments Results Result Co mments Source [facility] Notes Date/Time Note Provider Source 2023-03-31 11:11:23 Pt changed PCP due to insurance OON. O Rao [facility] 2023-03-31 09:40:18 2nd refill request received from pharmacy. [facility] 2023-03-28 20:16:31 Images from the original note were not included. Last OV: 01/16/2021 with Hitesh Hooker Last Refill: 07/22/2022 prescribed by Hitesh Hooker Last Labs Pertaining to Med: N/A Future Appt: none Routed to provider for review. Unable to refill per ambulatory refill guidelines. omeprazole 40 mg capsule Sig: Take 1 capsule by mouth in the morning. Disp: 90 capsule Refills: 1 Start: 03/28/2023 Class: eRX For: Gastroesophageal reflux disease without esophagitis Last ordered: 8 months ago (07/22/2022) by Hitesh Hooker MD Gastroenterology: Antiulcer - Proton Pump Inhibitors [id number]/28/2023 12:35 PM Protocol Details Valid encounter within last 12 months TERIA MANAGER Miguelina Johnson RN [facility] 2023-03-28 12:35:31 Images from the original note were not included. [facility]
[2024-01-16 20:35] LABS: Absolute Lymphocytes (CBC) 0.5 K/uL (0.7-4.9); Absolute Monocytes 0.6 K/uL (0.1-1.3); Absolute Neutrophil 10.1 K/uL (1.8-8.0); Basophils % 0.3 % (0-1.3); Eosinophils % 0.1 % (0-4.4); Hematocrit 49.5 % (36.0-45.0); Hemoglobin 16.6 g/dL (12.0-15.0); Lymphocytes % 4.8 % (15.3-44.8); MCH 29.3 pg (27.0-35.0); MCHC 33.6 g/dL (32.0-36.0); MCV 87.3 fL (80-100); MPV 7.7 fL (7.6-11.3); Monocytes % 4.9 % (3.3-12.3); Neutrophils % 89.9 % (41.7-73.7); Nucleated Red Blood Cells % 0.1 % (0-0); Platelets 206 thou/uL (152-406); RBC Red Blood Cell Count 5.67 M/uL (3.86-4.86); Red Cell Distribution Width 14.3 % (12.1-15.2)
[2024-01-16] MEDS ORDERED: ONDANSETRON 4 MG/2 ML VIAL ONE ×2 (20:35→22:21)
[2024-01-16] MEDS ORDERED: NA CHLORIDE 0.9% 1,000 ML ONE (20:36)
[2024-01-16 20:42] LABS: Specific Gravity > 1.030 (1.005-1.030); Urine Bacteria None Seen /HPF (<20); Urine Bilirubin NEGATIVE (Negative); Urine Blood Trace (Negative); Urine Clarity Turbid (Clear); Urine Color Yellow (Yellow); Urine Crystals Unidentified Few /HPF (None Seen); Urine Culture Reflex Order NOT NEEDED; Urine Glucose NEGATIVE (Negative); Urine Ketones 1+ (Negative); Urine Microscopic Reflex YN ORDER UMIC; Urine Mucus Slight /HPF (None Seen); Urine Nitrite NEGATIVE (Negative); Urine Protein TRACE (Negative); Urine RBC <5 /HPF (None Seen); Urine Urobilinogen Normal (Normal); Urine Yeast (Budding) Trace /HPF (None Seen); Urine pH 5.5 (5.0-7.0)
[2024-01-16 20:47] LABS: SARS-CoV-2 Antigen CONTROL BLUE LINE VIS/BG OK; SARS-CoV-2 Antigen Rapid Res Negative (Negative)
[2024-01-16 20:52] LABS: Albumin 3.6 g/dL (3.4-5.0); Albumin/Globulin Ratio 0.9 (1.1-1.8); Anion Gap 10.8 mEq/L (5.0-15.0); Bilirubin Total 0.6 mg/dL (0.2-1.0); Globulin 3.9 g/dL (2.3-3.5); Protein, Total 7.5 g/dL (6.4-8.2)
[2024-01-16 20:54] LABS: Potassium 3.8 mEq/L (3.5-5.1)
[2024-01-16 21:41] LABS: Blood Morphology Comment NOT SEEN (NOT SEEN); Platelet Estimate ADEQ; White Blood Cell Scan OK (OK)
--- NOTE | 2024-01-16 22:17 | ER ---
Nurse's Notes [facility] Name: Yessenia Weir Age: 63 yrs Sex: Female : 1960 Arrival Date: 01/16/2024 Time: 19:18 Bed 12 Private MD: Diagnosis: Nausea with vomiting, unspecified;Diarrhea, unspecified Presentation: 01/15 20:01 Chief complaint: Patient states: Nausea, vomiting, diarrhea and headache onset today. cm10 Pt reports granddaughter was also sick. Coronavirus screen: Client denies travel out of the [place] in the last 14 days. Ebola Screen: Patient denies travel to an Ebola-affected area in the 21 days before illness onset. No symptoms or risks identified at this time. Initial Sepsis Screen: Does the patient meet any 2 criteria? HR > 90 bpm. Does the patient have a suspected source of infection? No. Patient's initial sepsis screen is negative. Risk Assessment: Do you want to hurt yourself or someone else? Patient reports no desire to harm self or others. Onset of symptoms was January 16, 2024. 20:01 Method Of Arrival: Ambulatory cm10 20:01 Acuity: VIVIANA 3 cm10 Triage Assessment: 20:02 General: Appears in no apparent distress. uncomfortable, Behavior is calm, cooperative. cm10 Neuro: No deficits noted. Level of Consciousness is awake, alert, obeys commands, Oriented to person, place, time, situation, Appropriate for age. Respiratory: No deficits noted. Airway is patent Respiratory effort is even, unlabored, Respiratory pattern is regular, symmetrical. Historical: - Allergies: 20:02 Codeine; cm10 - PMHx: 20:02 Diverticulitis; Hypertensive disorder; pre-diabetic; UTI; cm10 - PSHx: 20:02 section; Cholecystectomy; knee sx; Tonsillectomy; cm10 - Immunization history:: Adult Immunizations up to date. - Infectious Disease History:: Denies. - Social history:: Smoking status: Patient denies any tobacco usage or history of. Screenin:30 [facility] ED Fall Risk Assessment (Adult) History of falling in the last 3 months, ar6 including since admission No falls in past 3 months (0 pts) Confusion or Disorientation No (0 pts) Intoxicated or Sedated No (0 pts) Impaired Gait No (0 pts) Mobility Assist Device Used No (0 pt) Altered Elimination No (0 pt) Score/Fall Risk Level 0 - 2 = Low Risk Oriented to surroundings, Maintained a safe environment, Educated pt \T\ family on fall prevention, incl call for assistance when getting out of bed, Hourly rounding (assess needs \T\ fall precautionary measures) done. Abuse screen: Denies threats or abuse. Denies injuries from another. Nutritional screening: No deficits noted. Tuberculosis screening: No symptoms or risk factors identified. Assessment: 20:30 General: Appears in no apparent distress. uncomfortable, Behavior is calm, cooperative, ar6 appropriate for age. Pain: Complains of pain in face Pain currently is 6 out of 10 on a pain scale. Neuro: Level of Consciousness is awake, alert, obeys commands, Oriented to person, place, time, situation. Cardiovascular: Capillary refill < 3 seconds. Respiratory: Airway is patent. GI: Abdomen is round non-distended, Reports diarrhea, nausea, vomiting. : Urine is cloudy. EENT: Oral mucosa is moist. Derm: Skin is intact, is healthy with good turgor, Skin is dry, Skin is pink, warm \T\ dry. Musculoskeletal: Reports body aches. Vital Signs: 20:01 BP 140 / 83; Pulse 102; Resp 18; Temp 98.1(IR); Pulse Ox 98% on R/A; Weight 104.33 kg; cm10 Height 5 ft. 6 in. ; Pain 8/10; 20:30 BP 136 / 84; Pulse 84; Resp 18; Pulse Ox 99% on R/A; ar6 22:33 BP 122 / 59; Pulse 67; Resp 19; Pulse Ox 99% on R/A; ar6 20:01 Body Mass Index 37.12 (104.33 kg, 167.64 cm) cm10 20:01 Pain Scale: Adult cm10 ED Course: 19:21 Patient arrived in ED. jj6 20:00 [facility]C [facility] kb 20:00 Jimmy Costa MD is Attending Physician. kb 20:01 Triage completed. cm10 20:02 Arm band placed on left wrist. Patient placed in an exam room, on a stretcher. cm10 20:14 Jenny Mccormack, RN is Primary Nurse. ar6 20:30 No apparent distress. Awaiting lab results. ar6 20:30 Patient has correct armband on for positive identification. Placed in gown. Bed in low ar6 position. Call light in reach. Side rails up X 1. Provided Education on: plan of care. Pulse ox on. NIBP on. Door closed. Lights dimmed. Moved to private room. Warm blanket given. 20:30 No provider procedures requiring assistance completed. Inserted saline lock: 20 gauge ar6 in right antecubital area, using aseptic technique. Blood collected. Flushed with 10 mL NS. 20:41 Urinalysis w/ reflexes Sent. ar6 20:41 Lipase Sent. ar6 20:41 CMP Sent. ar6 20:41 SARS-COV-2 Antigen Rapid Sent. ar6 20:41 Flu Sent. ar6 22:34 IV discontinued, intact, bleeding controlled, No redness/swelling at site. Pressure ar6 dressing applied. Administered Medications: 22:05 Discontinued: ns 0.9% 1000 ml IV at 1 bolus Per protocol; to be given as a bolus over ar6 60 minutes 20:41 Drug: Ondansetron IVP 4 mg IVP once; over 2 minutes Route: IVP; Site: right antecubital;ar6 22:05 Follow up: Response: No adverse reaction ar6 20:41 Drug: NS 0.9% IV 1000 ml IV at 1 bolus Per protocol; to be given as a bolus over 60 ar6 minutes Route: IV; Rate: 1 bolus; Site: right antecubital; 22:05 Follow up: Response: No adverse reaction; IV Status: Completed infusion; IV Intake: ar6 1000ml 22:19 Drug: Ondansetron IVP 4 mg IVP once; over 2 minutes Route: IVP; Site: right antecubital;ar6 22:33 Follow up: Response: No adverse reaction ar6 Medication: 20:30 VIS not applicable for this client. ar6 Intake: 22:05 IV: 1000ml; Total: 1000ml. ar6 Outcome: 22:17 Discharge ordered by . flash 22:34 Discharged to home ambulatory, ar6 22:34 Condition: good 22:34 Discharge instructions given to patient, Instructed on discharge instructions, follow up and referral plans. medication usage, Demonstrated understanding of instructions, follow-up care, medications, Prescriptions given X 1, 22:35 Patient left the ED. ar6 Signatures: Janice Doss, Krystla Figueroa jj6 Ruchi Noel, RN RN cm10 Jenny Mccormack RN RN ar6
--- NOTE | 2024-01-16 22:17 | EDPHYS ---
Physician Documentation [facility] Name: Yessenia Weir Age: 63 yrs Sex: Female : 1960 Arrival Date: 01/16/2024 Time: 19:18 Bed 12 Private MD: ED Physician Jimmy Costa HPI: 01/15 23:19 This 63 yrs old Female presents to ER via Ambulatory with complaints of kb Nausea/Vomiting/Diarrhea. 23:19 Pt is a 63 year old female who presents for nausea, vomiting and diarrhea that started kb this morning. States her granddaughter had similar symptoms, then her son and daughter. States she has no abd pain and this doesn't feel like previous diverticulitis. Denies fever. Historical: - Allergies: 20:02 Codeine; cm10 - PMHx: 20:02 Diverticulitis; Hypertensive disorder; pre-diabetic; UTI; cm10 - PSHx: 20:02 section; Cholecystectomy; knee sx; Tonsillectomy; cm10 - Immunization history:: Adult Immunizations up to date. - Infectious Disease History:: Denies. - Social history:: Smoking status: Patient denies any tobacco usage or history of. ROS: 23:09 Constitutional: As per HPI kb Exam: 23:09 Constitutional: This is a well developed, well nourished patient who is awake, alert, kb and in no acute distress. Head/Face: Normocephalic, atraumatic. ENT: Moist Mucous membranes Cardiovascular: Regular rate Respiratory: Respirations even and unlabored. No increased work of breathing. Talking in full sentences Abdomen/GI: Soft, non-tender. No distention Skin: Warm, dry with normal turgor. Normal color. MS/ Extremity: Pulses equal, no cyanosis. Neurovascular intact. Full, normal range of motion. Neuro: Awake and alert, GCS 15, oriented to person, place, time, and situation. Vital Signs: 20:01 BP 140 / 83; Pulse 102; Resp 18; Temp 98.1(IR); Pulse Ox 98% on R/A; Weight 104.33 kg; cm10 Height 5 ft. 6 in. ; Pain 8/10; 20:30 BP 136 / 84; Pulse 84; Resp 18; Pulse Ox 99% on R/A; ar6 22:33 BP 122 / 59; Pulse 67; Resp 19; Pulse Ox 99% on R/A; ar6 20:01 Body Mass Index 37.12 (104.33 kg, 167.64 cm) cm10 20:01 Pain Scale: Adult cm10 MDM: 20:00 Medical Screening Exam initiated kb 23:18 Differential diagnosis: Nonspecific abd pain, diverticulitis, viral gastroenteritis, kb dehydration, abnormal electrolytes. Data reviewed: vital signs, nurses notes. Test considered but Not performed: CT: ct abd considered but pt has no abd tenderness and reports 3 family members have similar symptoms. Counseling: I had a detailed discussion with the patient and/or guardian regarding the historical points, exam findings, and any diagnostic results supporting the discharge/admit diagnosis, lab results, the need for outpatient follow up, a family practitioner, to return to the emergency department if symptoms worsen or persist or if there are any questions or concerns that arise at home. ED course: Pt feeling better after treatment, tolerating po intake. 01/15 20:05 Order name: CBC with Diff; Complete Time: 21:41 kb 01/15 20:05 Order name: CMP; Complete Time: 21:05 kb 01/15 20:05 Order name: Lipase; Complete Time: 21:05 kb 01/15 20:05 Order name: Urinalysis w/ reflexes; Complete Time: 20:44 kb 01/15 20:05 Order name: SARS-COV-2 Antigen Rapid; Complete Time: 20:47 kb 01/15 20:05 Order name: Flu; Complete Time: 20:53 kb 01/15 21:41 Order name: CBC Smear Scan; Complete Time: 21:41 EDMS 01/15 20:05 Order name: IV Saline Lock; Complete Time: 20:41 kb 01/15 20:05 Order name: Labs collected and sent; Complete Time: 20:41 kb 01/15 21:32 Order name: PO challenge; Complete Time: 22:03 kb Administered Medications: 22:05 Discontinued: ns 0.9% 1000 ml IV at 1 bolus Per protocol; to be given as a bolus over ar6 60 minutes 20:41 Drug: Ondansetron IVP 4 mg IVP once; over 2 minutes Route: IVP; Site: right antecubital;ar6 22:05 Follow up: Response: No adverse reaction ar6 20:41 Drug: NS 0.9% IV 1000 ml IV at 1 bolus Per protocol; to be given as a bolus over 60 ar6 minutes Route: IV; Rate: 1 bolus; Site: right antecubital; 22:05 Follow up: Response: No adverse reaction; IV Status: Completed infusion; IV Intake: ar6 1000ml 22:19 Drug: Ondansetron IVP 4 mg IVP once; over 2 minutes Route: IVP; Site: right antecubital;ar6 22:33 Follow up: Response: No adverse reaction ar6 Disposition Summary: 01/16/24 22:17 Discharge Ordered Notes: Location: Home kb Condition: Stable kb Diagnosis - Nausea with vomiting, unspecified kb - Diarrhea, unspecified kb Followup: kb - With: Emergency Department - When: As needed - Reason: Worsening of condition Followup: kb - With: Private Physician - When: 2 - 3 days - Reason: Recheck today's complaints, Continuance of care, Re-evaluation by your physician Discharge Instructions: - Discharge Summary Sheet kb - Viral Gastroenteritis, Adult, [id number] kb Forms: - Medication Reconciliation Form kb - Antibiotic Education kb - Prescription Opioid Use kb - Patient Portal Instructions kb - Leadership Thank You Letter kb Prescriptions: - Zofran 4 mg Oral tablet - take 1 tablet ORAL route every 6 hours As needed; 12 tablet; Refills: 0, kb Product Selection Permitted Signatures: Dispatcher [employer] Janice Sheets, LEAN COACH-C LEAN COACH-Ruchi Cronin, RN RN cm10 Jenny Mccormack RN RN ar6 Corrections: (The following items were deleted from the chart) 20:06 20:06 CBC+H.LAB.BRZ ordered. EDMS EDMS 20:06 20:06 COMPREHENSIVE METABOLIC PANEL+C.LAB.BRZ ordered. EDMS EDMS 20:06 20:06 LIPASE+C.LAB.BRZ ordered. EDMS EDMS 20:06 20:06 Urinalysis+U.LAB.BRZ ordered. EDMS EDMS 20:06 20:06 SARS-COV-2 Antigen Rapid+I.LAB.BRZ ordered. EDMS EDMS 20:06 20:06 Influenza Screen (A \T\ B)+BA.LAB.BRZ ordered. EDMS EDMS 23:20 23:19 Pt is a 63 year old female who presents for nausea, vomiting and diarrhea that kb started yesterday. kb
[2024-01-17 04:11] VITALS: TEMP 98.1
[2024-01-17 04:12] VITALS: O2SAT 99
[2024-01-17 04:14] VITALS: BP 122/59
== END 2024-01-16 22:35 | disposition home or self-care (01) ==
LOC: ER 19:18
DX: R11.2 Nausea with vomiting, unspecified (principal); R19.7 Diarrhea, unspecified; Z11.52 Encounter for screening for COVID-19
CPT/HCPCS: 96361; 85025; 81001; 36415; 83690; 80053; 87804 ×2; 96374; 99284; 87811; J2405 ×2; J7030